=== PATIENT | female | born 1990 | race Caucasian/White ===

== ENCOUNTER 2017-08-14 09:00 | Inpatient (IN) | payer OTHER ==
[2017-08-14] MEDS ORDERED: AMPICILLIN SODIUM 2 GM VIAL ONE (12:38)
[2017-08-14] MEDS ORDERED: DEXTROSE 5%-LACTATED RINGERS 1,000 ML IV SCH (12:45)
--- NOTE | 2017-08-14 12:47 | HP ---
Past Medical History - Admission Chief Complaint: Labor pain History of Present Illness: 26 yo @ 39 weeks gestation, EDC 08/17/17, admitted for labor pain. History Source: Patient Limitations to Obtaining History: No Limitations - Past Medical History ...: 6 ...Para: 1 ...Term: 1 ...: 0 ...Spon : 1 ...Induced : 3 ...LMP: 11/03/16 ... Weeks Gestation by Dates: 40.4 ...EDC by Dates: 08/10/17 ...EDC by Sono: 08/17/17 - Past Surgical History Past Surgical History: Yes: None Hx Myomectomy: No Hx Transabdominal Cerclage: No - Smoking History Smoking history: Never smoked - Alcohol/Substance Use Hx Alcohol Use: No History of Substance Use: reports: None - Social History History of Recent Travel: No Home Medications - Allergies Allergies/Adverse Reactions: Allergies Allergy/AdvReac Type Severity Reaction Status Date / Time No Known Drug Allergies Allergy Verified 08/14/17 09:55 - Home Medications Home Medications: Ambulatory Orders Vitamins (Sjr) - 1 tab PO DAILY 04/20/13 Albuterol Sulfate 5 mg IH PRN 08/14/17 Ferrous Sulfate [Iron] 325 mg PO DAILY 08/14/17 Family Disease History - Family Disease History Family History: Unremarkable Review of Systems - Review of Systems Constitutional: reports: No Symptoms Eyes: reports: No Symptoms HENT: reports: No Symptoms Neck: reports: No Symptoms Cardiovascular: reports: No Symptoms Respiratory: reports: No Symptoms Gastrointestinal: reports: No Symptoms Genitourinary: reports: Pain Breasts: reports: No Symptoms Reported Musculoskeletal: reports: No Symptoms Integumentary: reports: No Symptoms Neurological: reports: No Symptoms Endocrine: reports: No Symptoms Hematology/Lymphatic: reports: No Symptoms Psychiatric: reports: No Symptoms Pain Intensity: 7 Physical Exam - Maternity Vital Signs: Vital Signs Temperature 98.0 F 08/14/17 10:00 Pulse Rate 90 08/14/17 10:00 Respiratory Rate 18 08/14/17 10:00 Blood Pressure 120/70 08/14/17 10:00 O2 Sat by Pulse Oximetry (%) Constitutional: Yes: Well Nourished Eyes: Yes: Conjunctiva Clear HENT: Yes: Atraumatic Neck: Yes: Supple Cardiovascular: Yes: Regular Rate and Rhythm Lungs: Clear to auscultation - Abdominal Exam/OB Number of Fetuses: Single Presentation: Vertex - Vaginal Exam/OB Dilatation (cm): 4 Effacement (%): 70 Amniotic Membrane Status: Intact Presentation: Vertex/Position Station: -3 - Physical Exam Musculoskeletal: Yes: WNL Extremities: Yes: WNL ...Motor Strength: WNL Psychiatric: Yes: Alert, Oriented Problem List - Problems (1) 39 weeks gestation of Code(s): Z3A.39 - 39 WEEKS GESTATION OF Assessment/Plan 39 weeks gestation Active labor Admit to L&D Pitocin augmentation Anticipate
[2017-08-14 13:48] VITALS: BMI 35.9
[2017-08-14 13:48] LABS: BASO % 0.7 % (0-2.0); EOS % 1.1 % (0-4.5); HEMATOCRIT 36.2 % (32.4-45.2); HEMOGLOBIN 12.6 GM/dL (10.7-15.3); LYMPH % 18.7 % (8-40); MCH 32.2 pg (25.7-33.7); MEAN CELL VOLUME 92.1 fl (80-96); MEAN PLT VOLUME 8.5 fl (7.5-11.1); MONO % 7.9 % (3.8-10.2); NEUT % 71.6 % (42.8-82.8); PLATELET COUNT 241 K/MM3 (134-434); RBC 3.93 M/mm3 (3.60-5.2); RDW 13.4 % (11.6-15.6); WHITE BLOOD COUNT 9.6 K/mm3 (4.0-10.0)
[2017-08-14 14:05] LABS: INR 1.01 (0.82-1.09); PROTHROMBIN TIME (PATIENT) 11.4 SEC (9.7-13.0)
[2017-08-14 14:10] LABS: ANION GAP 7 (8-16); BLOOD UREA NITROGEN 11 mg/dL (7-18); CALCIUM 8.2 mg/dL (8.5-10.1); CHLORIDE 107 mmol/L (98-107); CO2 26 mmol/L (21-32); CREATININE 0.5 mg/dL (0.55-1.02); GLUCOSE,RANDOM 85 mg/dL (74-106); POTASSIUM 3.9 mmol/L (3.5-5.1); SODIUM 140 mmol/L (136-145)
[2017-08-14] MEDS ORDERED: OXYTOCIN 30 UNITS in 0.9% NS 30 UNIT/500 ML INFUS.BAG IVPB ONE (15:07)
[2017-08-14] MEDS ORDERED: AMPICILLIN - 2 GM in SODIUM CHLORIDE 100 ML IVPB ONE (15:30)
[2017-08-14] MEDS ORDERED: OXYTOCIN 30 UNITS in 0.9% NS 30 UNIT/500 ML INFUS.BAG IVPB SCH (15:45)
[2017-08-14] MEDS: AMPICILLIN - 1 GM in SODIUM CHLORIDE 100 ML IVPB SCH ×2 (16:45→20:45)
[2017-08-14] MEDS ORDERED: AMPICILLIN SODIUM 1 GM VIAL ONE ×2 (16:53→20:52)
[2017-08-14] MEDS ORDERED: PROMETHAZINE HCL 25 MG/1 ML VIAL ONE (18:15)
[2017-08-14] MEDS ORDERED: BUTORPHANOL TARTRATE 1 MG/ML VIAL ONE ×2 (18:15)
[2017-08-14] MEDS ORDERED: PROMETHAZINE HCL 25 MG/1 ML VIAL IVPUSH ONE (19:00)
[2017-08-14] MEDS ORDERED: BUTORPHANOL TARTRATE 1 MG/ML VIAL IVPUSH ONE (19:00)
--- NOTE | 2017-08-14 20:38 | PN ---
Progress Note (short form) - Note Progress Note: Patient seen and evaluated; she c/o moderate discomfort. FHR : reassuring Bishop : + regular contractions VE : / -1 SROM ( clear ) Continue Pitocin augmentation Anticipate Problem List - Problems (1) 39 weeks gestation of Code(s): Z3A.39 - 39 WEEKS GESTATION OF
[2017-08-14] MEDS ORDERED: NALOXONE HCL 0.4 MG/ML VIAL IVPUSH PRN (20:49)
[2017-08-14] MEDS ORDERED: OXYTOCIN 20 UNITS in 0.9% NS 20 UNIT/1,000 ML INFUS.BAG IV ONE (20:51)
[2017-08-14] MEDS ORDERED: LIDOCAINE HCL 1% PRESERVATIVE FREE - 30ML VIAL ONE (20:52)
[2017-08-14] MEDS ORDERED: LIDO 2%/EPI 1:200000 PRESRVFRE (20 ML SDVIAL) ONE (20:55)
[2017-08-14] MEDS ORDERED: FENTANYL/BUPIVACAINE/NS/PF - PCEA - 50 ML DISP.SYRIN EP SCH (21:00)
[2017-08-14] MEDS ORDERED: FENTANYL/BUPIVACAINE/NS/PF - PCEA - 50 ML DISP.SYRIN EP ONE (21:10)
[2017-08-15] MEDS: IBUPROFEN 600 MG TABLET (FP) PO PRN ×3 (00:45→19:55)
[2017-08-15] MEDS ORDERED: IBUPROFEN 600 MG TABLET (FP) PO ONE (00:47)
[2017-08-15] MEDS: ACETAMINOPHEN 325 MG TABLET (FP) PO PRN ×2 (02:53→19:55)
[2017-08-15] MEDS: AMPICILLIN - 1 GM in SODIUM CHLORIDE 100 ML IVPB SCH (06:32)
--- NOTE | 2017-08-15 09:37 | PN ---
Post Note - Post Date of Delivery: 08/14/17 Post Day: 1 Vital Signs: Vital Signs - 24 hr 08/14/17 08/14/17 08/14/17 10:00 13:00 14:00 Temperature 98.0 F 97.8 F 98.6 F Pulse Rate 52 L 64 Pulse Rate [ 90 Left Pulse Oximetry] Respiratory 18 18 18 Rate Blood Pressure 107/52 112/54 Blood Pressure 120/70 [Right Upper Arm] O2 Sat by Pulse Oximetry (%) 08/14/17 08/14/17 08/14/17 15:00 16:00 17:00 Temperature 97.9 F Pulse Rate 56 L 56 L 54 L Pulse Rate [ Left Pulse Oximetry] Respiratory 20 20 20 Rate Blood Pressure 114/55 127/74 118/71 Blood Pressure [Right Upper Arm] O2 Sat by Pulse Oximetry (%) 08/14/17 08/14/17 08/14/17 18:00 19:00 20:00 Temperature 98.5 F Pulse Rate 62 55 L 55 L Pulse Rate [ Left Pulse Oximetry] Respiratory 20 20 20 Rate Blood Pressure 125/53 130/76 126/78 Blood Pressure [Right Upper Arm] O2 Sat by Pulse Oximetry (%) 08/14/17 08/14/17 08/14/17 21:00 21:05 21:10 Temperature Pulse Rate 60 59 L 69 Pulse Rate [ Left Pulse Oximetry] Respiratory 20 20 20 Rate Blood Pressure 123/80 96/67 110/60 Blood Pressure [Right Upper Arm] O2 Sat by Pulse 100 98 100 Oximetry (%) 08/14/17 08/14/17 08/14/17 21:15 21:30 21:45 Temperature Pulse Rate 69 71 82 Pulse Rate [ Left Pulse Oximetry] Respiratory 20 20 20 Rate Blood Pressure 106/59 111/55 121/67 Blood Pressure [Right Upper Arm] O2 Sat by Pulse 100 100 100 Oximetry (%) 08/14/17 08/14/17 08/14/17 22:00 22:15 22:30 Temperature Pulse Rate 65 65 69 Pulse Rate [ Left Pulse Oximetry] Respiratory 20 20 20 Rate Blood Pressure 123/68 121/68 119/64 Blood Pressure [Right Upper Arm] O2 Sat by Pulse 100 100 100 Oximetry (%) 08/14/17 08/14/17 08/14/17 22:45 23:00 23:15 Temperature Pulse Rate 63 62 97 H Pulse Rate [ Left Pulse Oximetry] Respiratory 20 20 20 Rate Blood Pressure 118/67 118/67 126/79 Blood Pressure [Right Upper Arm] O2 Sat by Pulse 100 100 100 Oximetry (%) 08/14/17 08/15/17 08/15/17 23:30 00:00 00:15 Temperature 98.4 F Pulse Rate 110 H 63 63 Pulse Rate [ Left Pulse Oximetry] Respiratory 20 20 20 Rate Blood Pressure 145/68 118/50 112/62 Blood Pressure [Right Upper Arm] O2 Sat by Pulse 100 100 Oximetry (%) 08/15/17 08/15/17 08/15/17 00:30 00:45 02:00 Temperature 98.5 F Pulse Rate 82 80 59 L Pulse Rate [ Left Pulse Oximetry] Respiratory 20 20 20 Rate Blood Pressure 120/44 127/49 112/50 Blood Pressure [Right Upper Arm] O2 Sat by Pulse 100 Oximetry (%) 08/15/17 06:00 Temperature 98.2 F Pulse Rate 74 Pulse Rate [ Left Pulse Oximetry] Respiratory 20 Rate Blood Pressure 126/56 Blood Pressure [Right Upper Arm] O2 Sat by Pulse Oximetry (%) Labs: Laboratory Results - last 24 hr 08/14/17 08/14/17 08/14/17 13:28 13:28 13:28 WBC 9.6 RBC 3.93 D Hgb 12.6 D Hct 36.2 D MCV 92.1 MCH 32.2 MCHC 35.0 RDW 13.4 Plt Count 241 D MPV 8.5 Neutrophils % 71.6 Lymphocytes % 18.7 D Monocytes % 7.9 Eosinophils % 1.1 Basophils % 0.7 PT with INR 11.40 INR 1.01 PTT (Actin FS) 26.0 L Sodium 140 Potassium 3.9 Chloride 107 Carbon Dioxide 26 Anion Gap 7 L BUN 11 Creatinine 0.5 L Random Glucose 85 Calcium 8.2 L RPR Titer Blood Type Antibody Screen 08/14/17 08/14/17 13:28 13:28 WBC RBC Hgb Hct MCV MCH MCHC RDW Plt Count MPV Neutrophils % Lymphocytes % Monocytes % Eosinophils % Basophils % PT with INR INR PTT (Actin FS) Sodium Potassium Chloride Carbon Dioxide Anion Gap BUN Creatinine Random Glucose Calcium RPR Titer Nonreactive Blood Type A POSITIVE Antibody Screen Negative - Subjective Subjective: No Complaints, No Nausea or vomiting - Objective Afebrile: Yes Breast: Not engorged Abdomen: Soft, Non-tender Uterus: Fundus firm Vagina: Scant lochia Extremities: Non-tender - Assessment/Plan (1) (normal spontaneous vaginal delivery) Assessment: S/P Normal Plan: Routine Care
[2017-08-15] MEDS ORDERED: DIPHTH,PERTUSS(ACELL),TET 0.5 ML DISP.SYRIN IM ONE (10:00)
[2017-08-16 08:46] VITALS: BP 130/72; PULSE 53; TEMP 98.5
--- NOTE | 2017-08-16 14:20 | PN ---
Delivery - Delivery Vaginal Delivery: Spontaneous Type of Anesthesia: Epidural Episiotomy/Laceration: None EBL (cc): 300 Delivery, Single - Stages of Labor Date 1st Stage Initiatied: 08/14/17 Time 1st Stage Initiated: 16:55 Date 2nd Stage Initiated: 08/14/17 Time 2nd Stage Initiated: 23:00 Date of Delivery: 08/14/17 Time of Delivery: 23:32 Time Placenta Delivered: 23:40 - Condition of Pantry Cook/Dyer Helper Present: No Gender: Female Weight: 7 lb 15 oz Position: Left, OA Total Hours ROM (Hrs/Mins): 3h15m - 1 Minute Total Score: 9 5 Minutes Total Score: 9 - Feeding Plan Initial Plan: Elected not to breastfeed exclusively throughout hospitalization Remarks - Remarks Remarks: Normal spontaneous vaginal delivery of a live infant. Nose / Oropharynx suctioned @ perineum. Cord clamped and cut. Placenta expelled spontaneously intact.
--- NOTE | 2017-08-16 14:22 | DS ---
Physical Exam-INSECT CONTROL INSPECTOR Vital Signs: Vital Signs Temperature 98.5 F 08/16/17 08:30 Pulse Rate 53 L 08/16/17 08:30 Respiratory Rate 18 08/16/17 08:30 Blood Pressure 130/72 08/16/17 08:30 O2 Sat by Pulse Oximetry (%) 100 08/15/17 00:30 Constitutional: Yes: Well Nourished Eyes: Yes: Conjunctiva Clear HENT: Yes: Atraumatic Neck: Yes: Supple Cardiovascular: Yes: Regular Rate and Rhythm Respiratory: Yes: Regular Gastrointestinal: Yes: Normal Bowel Sounds External Genitalia: Yes: Normal Vaginal Exam: Yes: Normal Cervix: Yes: Normal Uterus: Yes: Firm ....Post : Yes: Uterus firm, Moderate lochia serosa Breast(s): Yes: WNL Musculoskeletal: Yes: WNL Extremities: Yes: WNL Neurological: Yes: Alert, Oriented ...Motor Strength: WNL Psychiatric: Yes: Alert, Oriented Labs: CBC, BMP 08/14/17 13:28 08/14/17 13:28 Delivery - Delivery Vaginal Delivery: Spontaneous Type of Anesthesia: Epidural Episiotomy/Laceration: None EBL (cc): 300 Delivery, Single - Stages of Labor Date 1st Stage Initiatied: 08/14/17 Time 1st Stage Initiated: 16:55 Date 2nd Stage Initiated: 08/14/17 Time 2nd Stage Initiated: 23:00 Date of Delivery: 08/14/17 Time of Delivery: 23:32 Time Placenta Delivered: 23:40 - Condition of Infant Mental Telepathist/Parking Lot Attendant And Cashier Present: No Gender: Female Weight: 7 lb 15 oz Position: Left, OA Total Hours ROM (Hrs/Mins): 3h15m - 1 Minute Total Score: 9 5 Minutes Total Score: 9 - [place] Feeding Plan Initial Plan: Elected not to breastfeed exclusively throughout hospitalization Discharge Summary Reason For Visit: LABOR Procedures: Principal: Normal spontaneous vaginal delivery Hospital Course: Routine care Condition: Good - Instructions Diet, Activity, Other Instructions: Regular diet No douching, no sexual intercourse x 6 weeks F/U with MD in 6 weeks Disposition: HOME - Home Medications Comprehensive Discharge Medication List: Ambulatory Orders Vitamins (Sjr) - 1 tab PO DAILY 04/20/13 Albuterol Sulfate 5 mg IH PRN 08/14/17 Ferrous Sulfate [Iron] 325 mg PO DAILY 08/14/17
== END 2017-08-16 11:50 | disposition home or self-care (01) | DRG 560 ==
LOC: JDEL 09:00 → JLDR 12:15 → J3W 08-15 01:52
PROVIDERS: ADMIT Obstetrics & Gynecology; ATTEND Obstetrics & Gynecology
PROC: 10E0XZZ Delivery of Products of Conception, External Approach (ICD-10-PCS; principal; 2017-08-14)
DX: O80 Encounter for full-term uncomplicated delivery (principal); Z3A.39 39 weeks gestation of pregnancy; Z37.0 Single live birth
CPT/HCPCS: 36415; 59409; 80048; 85025; 85610; 85730; 86593; 86850; 86900; 86901; 90715

== ENCOUNTER 2019-04-06 12:58 | Inpatient (IN) | payer OTHER ==
[2019-04-06 13:07] VITALS: BMI 34.7
[2019-04-06] MEDS ORDERED: SODIUM CHLORIDE 1,000 ML IV STA ×2 (13:47→20:17)
[2019-04-06] MEDS ORDERED: FAMOTIDINE 20 MG/50 ML IVPB 20 MG/50 ML MG IVPB ONE ×2 (13:47→15:41)
[2019-04-06] MEDS ORDERED: morphine CARPU-JECT 4 MG/1 ML DISP.SYRIN IVPUSH ONE (13:47)
[2019-04-06] MEDS ORDERED: ONDANSETRON 4 MG/2 ML VIAL IVPUSH ONE (13:49)
--- NOTE | 2019-04-06 13:56 | PDOC ---
History of Present Illness - General Chief Complaint: Pain, Acute Stated Complaint: ABD/PAIN Time Seen by Provider: 04/06/19 13:36 History Source: Patient Exam Limitations: No Limitations - History of Present Illness Initial Comments: 04/06/19 13:54 Patient is a 28-year-old female to the ED with complaint of epigastric and right upper quadrant abdominal pain that radiates to her back. She states the pain has been ongoing for the last 4 to 5 days. She was seen at [facility] yesterday where she had labs, a CT scan, chest x-ray, and right upper quadrant ultrasound and was told they were all negative. She was discharged with a diagnosis of gastroenteritis. The patient states she has a history of kidney stones but this feels different and worse. She drinks alcohol socially less than once a month. She is a smoker. She admits to vomiting several times daily and states it is nonbloody. She denies any diarrhea. She states the pain initially started after eating something. Past History - Past Medical History Allergies/Adverse Reactions: Allergies Allergy/AdvReac Type Severity Reaction Status Date / Time No Known Drug Allergies Allergy Verified 08/14/17 09:55 Home Medications: Ambulatory Orders Escitalopram Oxalate [Lexapro -] 20 mg PO DAILY 04/06/19 Hydroxyzine HCl 25 mg PO TID PRN 04/06/19 Asthma: No Cancer: No Cardiac Disorders: No COPD: No Diabetes: No HTN: No Seizures: No Thyroid Disease: No - Psycho Social/Smoking Cessation Hx Smoking History: Smoker current status UNK Have you smoked in the past 12 months: No Hx Alcohol Use: No Drug/Substance Use Hx: No Hx Substance Use Treatment: No Review of Systems - Review of Systems Comments:: 04/06/19 13:55 - Review of Systems Able to Perform ROS?: Yes Constitutional: No: Documented fevers, Loss of Appetite, Night Sweats, Weakness ; + chills today HEENTM: No: Eye Pain, Vision changes, Ear Pain, Throat Pain, Throat Swelling, Mouth Pain, Difficulty Swallowing Respiratory: No: Cough, Shortness of Breath, Wheezing, Sputum Production Cardiac (ROS): No: Chest Pain, Chest Tightness, Palpitations, Irregular Heart Beat, Edema ABD/GI: No: Diarrhea; Positive: abdominal pain, vomiting, nausea : No Dysuria, No Hematuria, No Frequency, No Urgency, No Vaginal Discharge/ Pain Musculoskeletal: No: Muscle Pain, Back Pain, Joint Pain, Muscle Weakness, Neck Pain Integumentary: No: Lesions, Rash Neurological: No: Headache, Numbness, Tingling, Weakness, Speech Difficulties *Physical Exam - Vital Signs Last Vital Signs Temp Pulse Resp BP Pulse Ox 97.9 F 64 18 133/79 100 04/06/19 13:06 04/06/19 13:06 04/06/19 13:06 04/06/19 13:06 04/06/19 13:06 - Physical Exam 04/06/19 13:56 - Physical Exam General Appearance: Nourished, Appropriately Dressed, Moderate distress secondary to pain HEENT: EOMI, Normal Voice, No Nasal Congestion, Hearing Grossly Normal, No Muffled/Hoarse voice Neck: Supple, No Lymphadenopathy (R), No Lymphadenopathy (L), No Rigidity, No Decreased range of motion Respiratory/Chest: Lungs Clear, Normal Breath Sounds. No Respiratory Distress, No Accessory Muscle Use Cardiovascular: Regular Rhythm, Regular Rate, S1, S2 Gastrointestinal/Abdominal: Normal Bowel Sounds, Soft. Significant epigastric and RUQ abdominal tenderness to palpation, No rigidity, No rebound, + guarding, + R CVA tenderness to palpation, No CVA tenderness on the left Musculoskeletal: Normal Inspection. No Decreased Range of Motion Extremity: Normal Capillary Refill, Normal Inspection Integumentary: Normal Color, Dry. No Rash Neurologic: aqueduct and reservoir keeper II-XII NML intact, Fully Oriented, Alert, Normal Mood/Affect, Normal Response ED Treatment Course - RADIOLOGY Radiology Studies Ordered: Category Date Time Status ABDOMEN US -LIMITED [US] Stat Ultrasound 04/06/19 13:50 Ordered Medical Decision Making - Medical Decision Making 04/06/19 16:00 Patient endorsed to BYRON Almonte for further evaluation and treatment. The patient is still pending her US read, IV medication and fluids and lab works. The patient is stable at signout. Discharge - Discharge Information Problems reviewed: Yes Clinical Impression/Diagnosis: RUQ abdominal pain - Follow up/Referral Referrals: Deandra Weinberg [Primary Care Provider] - - Patient Discharge Instructions - Post Discharge Activity
[2019-04-06] MEDS ORDERED: morphine SULFATE 4 MG/ML VIAL ONE (15:40)
[2019-04-06] MEDS ORDERED: ONDANSETRON 4 MG/2 ML VIAL ONE ×2 (15:41→22:22)
[2019-04-06] MEDS ORDERED: MAG HYDROX/AL HYDROX/SIMETH 30 ML UNIT-DOSE CUP PO ONE (16:41)
[2019-04-06] MEDS ORDERED: MAG HYDROX/AL HYDROX/SIMETH 30 ML UNIT-DOSE CUP ONE (16:46)
[2019-04-06 16:49] LABS: BASO % 0.3 % (0-2.0); EOS % 0.1 % (0-4.5); HEMATOCRIT 44.4 % (32.4-45.2); HEMOGLOBIN 14.8 GM/dL (10.7-15.3); LYMPH % 8.4 % (8-40); MCH 31.2 pg (25.7-33.7); MCHC 33.3 g/dl (32.0-36.0); MEAN CELL VOLUME 93.7 fl (80-96); MEAN PLT VOLUME 9.3 fl (7.5-11.1); MONO % 4.9 % (3.8-10.2); NEUT % 86.3 % (42.8-82.8); PLATELET COUNT 403 K/MM3 (134-434); RBC 4.74 M/mm3 (3.60-5.2); RDW 14.6 % (11.6-15.6); WHITE BLOOD COUNT 14.7 K/mm3 (4.0-10.0)
[2019-04-06] MEDS ORDERED: METOCLOPRAMIDE HCL INJECTION 10 MG/2 ML VIAL IVPB ONE (16:50)
[2019-04-06 17:23] LABS: BILIRUBIN,TOTAL 0.4 mg/dL (0.2-1); BLOOD UREA NITROGEN 10.1 mg/dL (7-18); CALCIUM 9.6 mg/dL (8.5-10.1); CREATININE 0.7 mg/dL (0.55-1.3)
[2019-04-06] MEDS ORDERED: METOCLOPRAMIDE HCL INJECTION 10 MG/2 ML VIAL ONE (17:28)
[2019-04-06 18:22] LABS: PH,URINE >= 9.0 (5.0-8.0); URINE APPEARANCE CLEAR; URINE BILIRUBIN NEGATIVE (NEGATIVE); URINE COLOR YELLOW; URINE GLUCOSE (UA) NEGATIVE (NEGATIVE); URINE KETONE 3+ (NEGATIVE); URINE LEUK ESTERASE NEGATIVE (NEGATIVE); URINE NITRITE NEGATIVE (NEGATIVE); URINE PROTEIN TRACE (NEGATIVE)
--- NOTE | 2019-04-06 19:35 | PDOC ---
*Physical Exam - Vital Signs Last Vital Signs Temp Pulse Resp BP Pulse Ox 97.9 F 64 18 133/79 100 04/06/19 13:06 04/06/19 13:06 04/06/19 13:06 04/06/19 13:06 04/06/19 13:06 - Physical Exam General Appearance: Yes: Appropriately Dressed Respiratory/Chest: positive: Lungs Clear, Normal Breath Sounds Cardiovascular: positive: Regular Rhythm, Regular Rate Gastrointestinal/Abdominal: positive: Normal Bowel Sounds, Tender (RUQ pain), Soft Extremity: positive: Normal Capillary Refill, Normal Inspection Neurologic: positive: Fully Oriented, Alert ED Treatment Course - LABORATORY CBC & Chemistry Diagram: 04/06/19 16:00 04/06/19 16:00 - ADDITIONAL ORDERS Additional order review: Laboratory Results 04/06/19 04/06/19 04/06/19 18:00 18:00 16:00 Sodium Potassium Chloride Carbon Dioxide Anion Gap BUN Creatinine Est GFR (CKD-EPI)AfAm Est GFR (CKD-EPI)NonAf Random Glucose Calcium Total Bilirubin AST ALT Alkaline Phosphatase Total Protein Albumin Lipase 70 L Urine Color Yellow Urine Appearance Clear Urine pH >= 9.0 H Ur Specific [place] 1.025 Urine Protein Trace Urine Glucose (UA) Negative Urine Ketones 3+ H Urine Blood Negative Urine Nitrite Negative Urine Bilirubin Negative Urine Urobilinogen 1.0 Ur Leukocyte Esterase Negative Urine HCG, Qual Negative 04/06/19 16:00 Sodium 140 Potassium 4.0 Chloride 107 Carbon Dioxide 24 Anion Gap 9 BUN 10.1 Creatinine 0.7 Est GFR (CKD-EPI)AfAm 138.59 Est GFR (CKD-EPI)NonAf 119.58 Random Glucose 102 Calcium 9.6 Total Bilirubin 0.4 AST 21 ALT 22 Alkaline Phosphatase 107 Total Protein 8.0 Albumin 4.0 Lipase Urine Color Urine Appearance Urine pH Ur Specific [place] Urine Protein Urine Glucose (UA) Urine Ketones Urine Blood Urine Nitrite Urine Bilirubin Urine Urobilinogen Ur Leukocyte Esterase Urine HCG, Qual 04/06/19 16:00 RBC 4.74 MCV 93.7 MCHC 33.3 RDW 14.6 MPV 9.3 Neutrophils % 86.3 H D Lymphocytes % 8.4 D Monocytes % 4.9 Eosinophils % 0.1 D Basophils % 0.3 - RADIOLOGY Radiology Studies Ordered: Category Date Time Status ABDOMEN & PELVIS CT WITH CONTR [CT] Stat CT Scan 04/06/19 18:43 Ordered - Medications Given in the ED: ED Medications Discontinued Medications Generic Name Dose Route Start Last Admin Trade Name Pita PRN Reason Stop Dose Admin Al Hydroxide/Mg Hydroxide 30 ml 04/06/19 16:41 04/06/19 16:52 Mylanta Oral Suspension - PO 04/06/19 16:42 30 ml ONCE ONE Administration Famotidine/Sodium Chloride 20 mg in 50 mls @ 100 mls/hr 04/06/19 13:47 16:10 Pepcid 20 Mg Premixed Ivpb - IVPB 04/06/19 14:16 100 mls/hr ONCE ONE Administration Sodium Chloride 1,000 mls @ 1,000 mls/hr 04/06/19 13:47 04/06/19 16:10 Normal Saline - IV 04/06/19 14:46 1,000 mls/hr ASDIR STA Administration Metoclopramide HCl 10 mg 04/06/19 16:50 04/06/19 17:33 Reglan Injection - IVPB 04/06/19 16:51 10 mg ONCE ONE Administration Morphine Sulfate 4 mg 04/06/19 13:47 04/06/19 16:10 Morphine Injection - IVPUSH 04/06/19 13:48 4 mg ONCE ONE Administration Ondansetron HCl 4 mg 04/06/19 13:49 04/06/19 16:10 Zofran Injection IVPUSH 04/06/19 13:50 4 mg ONCE ONE Administration Medical Decision Making - Medical Decision Making 04/06/19 19:34 patient still with upper abdominal pain. patient reports that at [facility] she did not have a CT scan just and ultrasound. will CT to r/o acute cause of pain 04/06/19 21:14 CTAP pending. 04/06/19 21:[address] parra. + Acute cholecystitis. recommends admission, nPO , antibiotics. admit under medicine 04/06/19 22:02 patient signed out to Mai Rojas INCUBATOR TENDER Discharge - Discharge Information Problems reviewed: Yes Clinical Impression/Diagnosis: RUQ abdominal pain, Acute cholecystitis - Admission Yes - Follow up/Referral Referrals: Deandra Weinberg [Primary Care Provider] - - Patient Discharge Instructions - Post Discharge Activity
[2019-04-06] MEDS ORDERED: FLUORESCEIN NA 1 EA STRIP ONE (19:58)
[2019-04-06] MEDS ORDERED: TETRACAINE 0.5% OPHTH SOLN 2 ML BOTTLE ONE (19:58)
[2019-04-06] MEDS ORDERED: ERYTHROMYCIN 0.5% OPHTHALMIC OINTMENT 3.5 GM TUBE ONE (19:58)
[2019-04-06] MEDS ORDERED: morphine CARPU-JECT 2 MG/1 ML DISP.SYRIN IVPUSH ONE (21:12)
[2019-04-06] MEDS ORDERED: MORPHINE SULFATE 2 MG/ML VIAL ONE (21:15)
[2019-04-06] MEDS ORDERED: PIPERACILLIN/TAZOB 3.375 GM 3.375 GM in DEXTROSE 5%-WATER - 50 ML IVPB ONE (21:55)
[2019-04-06] MEDS ORDERED: HYDROmorphone HCL CARPU-JECT 2 MG/1 ML DISP.SYRIN IVPB ONE (21:55)
[2019-04-06] MEDS ORDERED: ONDANSETRON 4 MG/2 ML VIAL IVPB ONE (21:55)
[2019-04-06] MEDS ORDERED: HYDROmorphone HCl 2 MG/ML VIAL ONE (22:22)
[2019-04-06] MEDS ORDERED: PIPERACILLIN/TAZOB 3.375 GM 3.375 GM/50 ML BAG IVPB ONE (22:22)
[2019-04-06 22:59] LABS: INR 1.2 (0.83-1.09); PROTHROMBIN TIME (PATIENT) 14.2 SEC (9.7-13.0)
[2019-04-06] MEDS ORDERED: DEXTROSE 5%-0.2% SALINE - 1,000 ML IV SCH (23:00)
--- NOTE | 2019-04-06 23:47 | HP ---
Admitting History and Physical - Primary Care Physician PCP: Deandra Weinberg A - Admission Chief Complaint: Abdominal Pain History of Present Illness: This is a 28 y/o young woman with a PMHx of Renal Calculi, Asthma. Who presents to the ED with complaints of epigastric and right upper quadrant abdominal pain that radiates to her back 7 days ago worse since Tuesday. Patient reports that the pain has been constant sharp to nagging. She states being seen at [facility] yesterday where she had labs, a CT scan, chest x-ray, and right upper quadrant ultrasound and was told they were all negative. She was discharged with a diagnosis of gastroenteritis. The patient states she has a history of kidney stones but this feels different and worse. She drinks alcohol socially less than once a month. She is a smoker. She admits bilious vomiting several times daily and states it is nonbloody. She denies any diarrhea. She states the pain initially started after eating something. Patient denies fever, cough, dizziness, RENAE, SOB, CP, palpitations, dysuria. History Source: Patient Limitations to Obtaining History: No Limitations - Past Medical History Renal/: Yes: Renal Calculi ...LMP: 03/29/19 ...: No - Past Surgical History Additional Past Surgical History: - Smoking History Smoking history: Current every day smoker Have you smoked in the past 12 months: Yes - Alcohol/Substance Use Hx Alcohol Use: Yes (Socially) History of Substance Use: reports: None - Social History Usual Living Arrangement: Yes: With Child Do you think of yourself as: Straight/Heterosexual ADL: Independent History of Recent Travel: No Home Medications - Allergies Allergies/Adverse Reactions: Allergies Allergy/AdvReac Type Severity Reaction Status Date / Time No Known Drug Allergies Allergy Verified 08/14/17 09:55 - Home Medications Home Medications: Ambulatory Orders Escitalopram Oxalate [Lexapro -] 20 mg PO DAILY 04/06/19 Hydroxyzine HCl 25 mg PO TID PRN 04/06/19 Family Medical History Family Hx Cardiac Disorders: Mother (HTN) Family Hx Diabetes: Mother, Sister Family Hx Psychiatric Problems: Brother (Depression) Review of Systems - Review of Systems Constitutional: reports: Chills Eyes: reports: No Symptoms HENT: reports: No Symptoms Neck: reports: No Symptoms Cardiovascular: reports: No Symptoms Respiratory: reports: No Symptoms Gastrointestinal: reports: Abdominal Pain, Nausea, Vomiting Genitourinary: reports: Flank Pain Breasts: reports: No Symptoms Reported Musculoskeletal: reports: No Symptoms Integumentary: reports: No Symptoms Neurological: reports: No Symptoms Endocrine: reports: No Symptoms Hematology/Lymphatic: reports: No Symptoms Psychiatric: reports: No Symptoms Pain Intensity: 8 Physical Examination Vital Signs: Vital Signs Temperature 97.9 F 04/06/19 13:06 Pulse Rate 64 04/06/19 13:06 Respiratory Rate 18 04/06/19 13:06 Blood Pressure 133/79 04/06/19 13:06 O2 Sat by Pulse Oximetry (%) 100 04/06/19 13:06 Constitutional: Yes: Mild Distress, Obese Eyes: Yes: WNL, Conjunctiva Clear, EOM Intact, PERRL HENT: Yes: WNL, Atraumatic, Normocephalic Neck: Yes: WNL, Supple, Trachea Midline Cardiovascular: Yes: WNL, Regular Rate and Rhythm, S1, S2 Respiratory: Yes: WNL, Regular, CTA Bilaterally Gastrointestinal: Yes: Soft, Abdomen, Obese, Hypoactive Bowel Sounds, Tenderness (RUQ), Tenderness, Epigastrium ...Rectal Exam: Yes: WNL Renal/: Yes: WNL Breast(s): Yes: WNL Musculoskeletal: Yes: WNL Extremities: Yes: WNL Edema: No Peripheral Pulses WNL: Yes Integumentary: Yes: WNL Neurological: Yes: WNL, Alert, Oriented, Cran Nerves II-XII Intact ...Motor Strength: WNL Psychiatric: Yes: WNL, Alert, Oriented Labs: CBC, BMP 04/06/19 16:00 04/06/19 16:00 Laboratory Results - last 24 hr 04/06/19 04/06/19 04/06/19 16:00 16:00 16:00 WBC 14.7 H RBC 4.74 Hgb 14.8 Hct 44.4 D MCV 93.7 MCH 31.2 MCHC 33.3 RDW 14.6 Plt Count 403 D MPV 9.3 Absolute Neuts (auto) 12.7 H Neutrophils % 86.3 H D Lymphocytes % 8.4 D Monocytes % 4.9 Eosinophils % 0.1 D Basophils % 0.3 Nucleated RBC % 0 PT with INR INR PTT (Actin FS) Sodium 140 Potassium 4.0 Chloride 107 Carbon Dioxide 24 Anion Gap 9 BUN 10.1 Creatinine 0.7 Est GFR (CKD-EPI)AfAm 138.59 Est GFR (CKD-EPI)NonAf 119.58 POC Glucometer Random Glucose 102 Calcium 9.6 Total Bilirubin 0.4 AST 21 ALT 22 Alkaline Phosphatase 107 Total Protein 8.0 Albumin 4.0 Lipase 70 L Urine Color Urine Appearance Urine pH Ur Specific [place] Urine Protein Urine Glucose (UA) Urine Ketones Urine Blood Urine Nitrite Urine Bilirubin Urine Urobilinogen Ur Leukocyte Esterase Urine HCG, Qual Blood Type Antibody Screen 04/06/19 04/06/19 04/06/19 18:00 18:00 22:30 WBC RBC Hgb Hct MCV MCH MCHC RDW Plt Count MPV Absolute Neuts (auto) Neutrophils % Lymphocytes % Monocytes % Eosinophils % Basophils % Nucleated RBC % PT with INR INR PTT (Actin FS) 33.2 Sodium Potassium Chloride Carbon Dioxide Anion Gap BUN Creatinine Est GFR (CKD-EPI)AfAm Est GFR (CKD-EPI)NonAf POC Glucometer Random Glucose Calcium Total Bilirubin AST ALT Alkaline Phosphatase Total Protein Albumin Lipase Urine Color Yellow Urine Appearance Clear Urine pH >= 9.0 H Ur Specific [place] 1.025 Urine Protein Trace Urine Glucose (UA) Negative Urine Ketones 3+ H Urine Blood Negative Urine Nitrite Negative Urine Bilirubin Negative Urine Urobilinogen 1.0 Ur Leukocyte Esterase Negative Urine HCG, Qual Negative Blood Type Antibody Screen 04/06/19 04/06/19 04/07/19 22:30 22:30 02:44 WBC RBC Hgb Hct MCV MCH MCHC RDW Plt Count MPV Absolute Neuts (auto) Neutrophils % Lymphocytes % Monocytes % Eosinophils % Basophils % Nucleated RBC % PT with INR 14.20 H INR 1.20 H PTT (Actin FS) Sodium Potassium Chloride Carbon Dioxide Anion Gap BUN Creatinine Est GFR (CKD-EPI)AfAm Est GFR (CKD-EPI)NonAf POC Glucometer 182 Random Glucose Calcium Total Bilirubin AST ALT Alkaline Phosphatase Total Protein Albumin Lipase Urine Color Urine Appearance Urine pH Ur Specific [place] Urine Protein Urine Glucose (UA) Urine Ketones Urine Blood Urine Nitrite Urine Bilirubin Urine Urobilinogen Ur Leukocyte Esterase Urine HCG, Qual Blood Type A POSITIVE Antibody Screen Negative Current Medications Generic Name Dose Route Start Last Admin Trade Name Freq PRN Reason Stop Dose Admin Hydromorphone HCl 1 mg 04/07/19 00:36 04/07/19 01:04 Dilaudid Vial - IVPB 1 mg Q6H PRN Administration PAIN LEVEL 7 - 10 Dextrose/Sodium Chloride 1,000 mls @ 100 mls/hr 04/06/19 23:30 04/07/19 01:03 D5-1/2ns - IV 100 mls/hr ASDIR MALAIKA Administration Piperacillin Sod/Tazobactam 50 mls @ 100 mls/hr 04/07/19 10:00 Sod 3.375 gm/ Dextrose IVPB Q8H-IV MALAIKA Protocol Piperacillin Sod/Tazobactam 50 mls @ 100 mls/hr 04/07/19 02:00 04/07/19 02:06 Sod 3.375 gm/ Dextrose IVPB 04/07/19 18:29 100 mls/hr Q8H-IV MALAIKA Administration Ondansetron HCl 4 mg 04/06/19 23:48 Zofran Injection IVPUSH Q6H PRN NAUSEA Imaging - Results Chest X-ray: Image Reviewed Cat Scan: Report Reviewed, Image Reviewed Ultrasound: Report Reviewed, Image Reviewed Problem List - Problems (1) Acute cholecystitis Assessment/Plan: CTAP- Acute Cholecystitis US Abd- reviewed +Leukocytosis with L- shift Zosyn given in ED will continue Appreciate Surgical Consult- aware per ED resident Appreciate ID consult NPO IVF Dilaudid prn judiciously Zofran Monitor CBC, BMP Monitor vitals Code(s): K81.0 - ACUTE CHOLECYSTITIS (2) RUQ abdominal pain Assessment/Plan: See above Code(s): R10.11 - RIGHT UPPER QUADRANT PAIN (3) Nausea & vomiting Assessment/Plan: See above Code(s): R11.2 - NAUSEA WITH VOMITING, UNSPECIFIED (4) Asthma Assessment/Plan: stable no acute flare Albuterol neb prn Code(s): J45.909 - UNSPECIFIED ASTHMA, UNCOMPLICATED Visit type - Emergency Visit Emergency Visit: Yes ED Registration Date: 04/06/19 Care time: The patient presented to the Emergency Department on the above date and was hospitalized for further evaluation of their emergent condition. - New Patient This patient is new to me today: Yes Date on this admission: 04/06/19 - Critical Care Critical Care patient: No
[2019-04-07] MEDS ORDERED: HYDROmorphone HCl 2 MG/ML VIAL ONE (00:48)
[2019-04-07] MEDS: DEXTROSE 5%-0.45% SALINE 1,000 ML IV SCH ×3 (01:03→21:33)
[2019-04-07] MEDS: HYDROmorphone HCl 2 MG/ML VIAL IVPB PRN ×6 (01:04→22:25)
[2019-04-07] MEDS ORDERED: PIPERACILLIN/TAZOBACTAM 3.375 GM VIAL IVPB ONE ×3 (01:52→17:04)
[2019-04-07] MEDS ORDERED: DEXTROSE 5%-WATER - 50 ML IVPB ONE ×3 (01:52→17:04)
[2019-04-07] MEDS: PIPERACILLIN/TAZOB 3.375 GM 3.375 GM in DEXTROSE 5%-WATER - 50 ML IVPB SCH ×3 (02:06→17:18)
[2019-04-07] MEDS ORDERED: METOCLOPRAMIDE HCL INJECTION 10 MG/2 ML VIAL IVPB ONE (02:09)
[2019-04-07] MEDS ORDERED: ALBUTEROL SO4 0.083% IH SOL 2.5 MG/3 ML VIAL.NEB. NEB PRN (06:36)
[2019-04-07 08:16] LABS: BASO % 0.3 % (0-2.0); EOS % 0.1 % (0-4.5); HEMATOCRIT 36.7 % (32.4-45.2); HEMOGLOBIN 12.1 GM/dL (10.7-15.3); LYMPH % 10.9 % (8-40); MCHC 32.9 g/dl (32.0-36.0); MEAN CELL VOLUME 94.3 fl (80-96); MEAN PLT VOLUME 8.8 fl (7.5-11.1); MONO % 10.4 % (3.8-10.2); NEUT % 78.3 % (42.8-82.8); PLATELET COUNT 276 K/MM3 (134-434); RBC 3.89 M/mm3 (3.60-5.2); RDW 14.4 % (11.6-15.6); WHITE BLOOD COUNT 12.8 K/mm3 (4.0-10.0)
[2019-04-07 08:36] LABS: BLOOD UREA NITROGEN 6.3 mg/dL (7-18); CALCIUM 8.7 mg/dL (8.5-10.1); CREATININE 0.6 mg/dL (0.55-1.3); POTASSIUM 4.1 mmol/L (3.5-5.1)
[2019-04-07] MEDS ORDERED: PIPERACILLIN/TAZOB 3.375 GM 3.375 GM in DEXTROSE 5%-WATER - 50 ML IVPB SCH (10:00)
--- NOTE | 2019-04-07 11:54 | PN ---
Progress Note, Physician Chief Complaint: AWAKE ALERT IN BED EVENTS AND NOTES REVIEWED NO FEVER OR CHILLS - Current Medication List Current Medications: Active Medications Albuterol Sulfate (Ventolin 0.083% Nebulizer Soln -) 1 amp NEB RQID PRN PRN Reason: SHORT OF BREATH/WHEEZING Hydromorphone HCl (Dilaudid Vial -) 1 mg IVPB Q6H PRN PRN Reason: PAIN LEVEL 7 - 10 Last Admin: 04/07/19 07:01 Dose: 1 mg Hydromorphone HCl (Dilaudid Vial -) 1 mg IVPB Q3H PRN PRN Reason: PAIN 6-10 Last Admin: 04/07/19 10:27 Dose: 1 mg Dextrose/Sodium Chloride (D5-1/2ns -) 1,000 mls @ 100 mls/hr IV ASDIR MALAIKA Last Admin: 04/07/19 09:27 Dose: 100 mls/hr Piperacillin Sod/Tazobactam (Sod 3.375 gm/ Dextrose) 50 mls @ 100 mls/hr IVPB Q8H-IV MALAIKA; Protocol Piperacillin Sod/Tazobactam (Sod 3.375 gm/ Dextrose) 50 mls @ 100 mls/hr IVPB Q8H-IV MALAIKA Stop: 04/07/19 18:29 Last Admin: 04/07/19 09:27 Dose: 100 mls/hr Ondansetron HCl (Zofran Injection) 4 mg IVPUSH Q6H PRN PRN Reason: NAUSEA - Objective Vital Signs: Vital Signs Temperature 99.1 F 04/07/19 11:00 Pulse Rate 75 04/07/19 11:00 Respiratory Rate 18 04/07/19 11:00 Blood Pressure 129/76 04/07/19 11:00 O2 Sat by Pulse Oximetry (%) 98 04/07/19 02:00 Constitutional: Yes: Mild Distress Cardiovascular: Yes: Regular Rate and Rhythm Respiratory: Yes: WNL Gastrointestinal: Yes: Soft, Tenderness Genitourinary: Yes: WNL Musculoskeletal: Yes: WNL Extremities: Yes: WNL Edema: No Peripheral Pulses WNL: Yes Integumentary: Yes: WNL Wound/Incision: Yes: Clean/Dry Neurological: Yes: WNL ...Motor Strength: WNL Psychiatric: Yes: WNL Labs: CBC, BMP 04/07/19 07:27 04/07/19 07:27 INR, PTT INR 1.20 (0.83-1.09) H 04/06/19 22:30 Problem List - Problems (1) Acute cholecystitis Code(s): K81.0 - ACUTE CHOLECYSTITIS (2) Nausea & vomiting Code(s): R11.2 - NAUSEA WITH VOMITING, UNSPECIFIED (3) RUQ abdominal pain Code(s): R10.11 - RIGHT UPPER QUADRANT PAIN Assessment/Plan URINE HCG NEGATIVE ZOSYN IV CONTINUE PER ID SURGERY EVAL DVT PROPHYLAXIS IVF PAIN CONTROL
--- NOTE | 2019-04-07 12:54 | PN ---
Progress Note (short form) - Note Progress Note: surgery pt seen and examined. 28f with 1 week history of ruq pain radiating to back. wbc 14. u/s shows no stones with small pericholecystic fluid and mild thickening. ct shows distended gb with mild thickening. pt admitted for acute cholecystitis and started on zosyn. abd- soft, ruq tenderness Plan- clinically acute cholecystitis but I am concerned that no stones are present. i would also expect more impressive findings on CT if this has been occurring for a week. could this be gastritis? will get HIDA. if HIDA positive will proceed with surgery this admission for acalculus choleycystitis. if hida negative may benefit from endoscopy. acalculus cholecystitis is extremely rare in 28 y/o people not institutionalized.
[2019-04-07] MEDS: PANTOPRAZOLE SODIUM 40 MG VIAL IVPUSH SCH ×2 (13:22→21:33)
[2019-04-07] MEDS: SUCRALFATE 1 GM TABLET (FP) PO SCH ×3 (13:23→21:32)
--- NOTE | 2019-04-07 13:25 | CONS ---
DATE OF CONSULTATION: 04/07/2019 REASON FOR CONSULTATION: Acute cholecystitis. This is an emergency room consultation. BRIEF HISTORY: This is a 28-year-old female who for 1 week has had a severe right upper quadrant abdominal pain radiating to her back. She was seen at a different hospital where she was told she had a negative CAT scan, negative ultrasound, and was diagnosed with gastritis and sent home. She, therefore, came to [facility] Emergency Room for different opinions. Here she had a CAT scan of her abdomen and pelvis as well as an ultrasound. The CAT scan and the ultrasound both suggested thickening of the gallbladder with possible small pericholecystic fluid. No stones were identified on either study. Her white blood cell count was elevated at 14,000, and her chemistries as well as her liver function tests were unremarkable. She was admitted to the hospital for acute cholecystitis. She was placed on Zosyn antibiotic. Overnight, her symptoms have not resolved. She is vomiting, and her white blood cell count is at 12,000. Her repeat chemistries are still unremarkable. PAST MEDICAL HISTORY: Significant for kidney stones and asthma. PAST SURGICAL HISTORY: Nil. SOCIAL HISTORY: Negative for alcohol. Negative for tobacco. FAMILY HISTORY: Noncontributory. HOME MEDICATIONS: Include Lexapro and hydrochlorothiazide. REVIEW OF SYSTEMS: General: Denies fatigue or malaise. Cardiac: Denies chest pain or palpitations. Respiratory: Denies shortness of breath or wheeze. Gastrointestinal: As in HPI. Denies blood in her vomit. Denies diarrhea. She thought that she initially had eaten some bad food and had gas. Genitourinary: Denies dysuria. Musculoskeletal: Denies joint pain. Psychiatric: Denies anxiety. Admits to some depression. PHYSICAL EXAMINATION: General: This is an obese 28-year-old female in no distress. Vital Signs: She is afebrile. Her vital signs are stable. HEENT: Her head is normocephalic. Her sclerae are anicteric. Neck: Supple. Chest: Clear. Abdomen: Soft. She has localized right upper quadrant tenderness with rebound, and I perhaps feel her gallbladder being distended on palpation. She has perhaps a small ventral hernia. She has no other surgical scars. Extremities: She has no edema to her extremities. ASSESSMENT: This is a 28-year-old female with right upper quadrant pain radiating to her back, nausea, vomiting. She has localized findings in her right upper quadrant. PLAN: Her ultrasound and CAT scan are suggestive of acute cholecystitis; however, she has no gallstones. Clinically, this is acute cholecystitis; however, I am concerned that no stones are visualized. I would expect also that if someone has had acute cholecystitis for a week that they would have significant inflammatory changes, and hers are unimpressive. Therefore, I must also entertain the diagnosis of gastritis. I will get a HIDA scan whenever it is available at [facility]. If the HIDA scan confirms cholecystitis, we will proceed with cholecystectomy. If the HIDA scan, however, is negative that will rule out acute cholecystitis and then perhaps the patient would benefit from an upper endoscopy. I would start proton pump inhibitor therapy as well as Carafate to treat for gastritis, and she is on Zosyn being treated for acute cholecystitis as well. She is currently nontoxic. She has no fever, and her white blood cell count is improving. DO ANIKA ESCOBEDO/[id number]
[2019-04-07] MEDS ORDERED: PT OWN MED DRAWER 7, Y5N ONE (17:35)
[2019-04-07] MEDS ORDERED: ALPRAZolam 0.25 MG TABLET PO PRN (18:53)
[2019-04-07] MEDS: ONDANSETRON 4 MG/2 ML VIAL IVPUSH PRN (19:25)
[2019-04-07] MEDS ORDERED: ESCITALOPRAM OXALATE 20 MG TABLET (FP) PO ONE (19:49)
[2019-04-07] MEDS ORDERED: ESCITALOPRAM OXALATE 10 MG TABLET (FP) ONE (21:13)
[2019-04-07] MEDS: HEPARIN NA (PORCINE) 5,000 UNITS/ML 1ML VIAL SQ SCH (21:32)
[2019-04-08] MEDS: HYDROmorphone HCl 2 MG/ML VIAL IVPB PRN ×7 (01:39→21:33)
[2019-04-08] MEDS: ONDANSETRON 4 MG/2 ML VIAL IVPUSH PRN ×4 (01:39→21:33)
[2019-04-08] MEDS ORDERED: DEXTROSE 5%-WATER - 50 ML IVPB ONE ×3 (01:45→17:45)
[2019-04-08] MEDS ORDERED: PIPERACILLIN/TAZOBACTAM 3.375 GM VIAL IVPB ONE ×3 (01:45→17:45)
[2019-04-08] MEDS: PIPERACILLIN/TAZOB 3.375 GM 3.375 GM in DEXTROSE 5%-WATER - 50 ML IVPB SCH ×3 (01:53→18:01)
[2019-04-08] MEDS: DEXTROSE 5%-0.45% SALINE 1,000 ML IV SCH ×2 (06:12→16:20)
--- NOTE | 2019-04-08 08:38 | PN ---
Progress Note, Physician Chief Complaint: AWAKE ALERT +N/V NO FEVER/ +CHILLS - Current Medication List Current Medications: Active Medications Albuterol Sulfate (Ventolin 0.083% Nebulizer Soln -) 1 amp NEB RQID PRN PRN Reason: SHORT OF BREATH/WHEEZING Alprazolam (Xanax -) 0.25 mg PO ONCE PRN PRN Reason: ANXIETY Stop: 04/08/19 18:52 Last Admin: 04/07/19 22:29 Dose: 0.25 mg Escitalopram Oxalate (Lexapro -) 20 mg PO DAILY [facility] Heparin Sodium (Porcine) (Heparin -) 5,000 unit SQ BID [facility] Last Admin: 04/07/19 21:32 Dose: 5,000 unit Hydromorphone HCl (Dilaudid Vial -) 1 mg IVPB Q6H PRN PRN Reason: PAIN LEVEL 7 - 10 Last Admin: 04/07/19 07:01 Dose: 1 mg Hydromorphone HCl (Dilaudid Vial -) 1 mg IVPB Q3H PRN PRN Reason: PAIN 6-10 Last Admin: 04/08/19 08:09 Dose: 1 mg Dextrose/Sodium Chloride (D5-1/2ns -) 1,000 mls @ 100 mls/hr IV ASDIR MALAIKA Last Admin: 04/08/19 06:12 Dose: 100 mls/hr Piperacillin Sod/Tazobactam (Sod 3.375 gm/ Dextrose) 50 mls @ 100 mls/hr IVPB Q8H-IV MALAIKA; Protocol Last Admin: 04/08/19 01:53 Dose: 100 mls/hr Ondansetron HCl (Zofran Injection) 4 mg IVPUSH Q6H PRN PRN Reason: NAUSEA Last Admin: 04/08/19 08:07 Dose: 4 mg Pantoprazole Sodium (Protonix Iv) 40 mg IVPUSH BID [facility] Last Admin: 04/07/19 21:33 Dose: 40 mg Sucralfate (Carafate -) 1 gm PO QID [facility] Last Admin: 04/07/19 21:32 Dose: 1 gm - Objective Vital Signs: Vital Signs Temperature 98.5 F 04/07/19 19:00 Pulse Rate 82 04/07/19 19:00 Respiratory Rate 20 04/07/19 19:00 Blood Pressure 140/90 04/07/19 19:00 O2 Sat by Pulse Oximetry (%) 99 04/07/19 09:00 Constitutional: Yes: Mild Distress Cardiovascular: Yes: WNL Respiratory: Yes: WNL Gastrointestinal: Yes: Tenderness Musculoskeletal: Yes: WNL Neurological: Yes: WNL Labs: CBC, BMP 04/07/19 07:27 04/07/19 07:27 INR, PTT INR 1.20 (0.83-1.09) H 04/06/19 22:30 Problem List - Problems (1) Acute cholecystitis Code(s): K81.0 - ACUTE CHOLECYSTITIS (2) Nausea & vomiting Code(s): R11.2 - NAUSEA WITH VOMITING, UNSPECIFIED (3) RUQ abdominal pain Code(s): R10.11 - RIGHT UPPER QUADRANT PAIN Assessment/Plan URINE HCG NEGATIVE ZOSYN IV CONTINUE PER ID SURGERY EVAL DVT PROPHYLAXIS IVF PAIN CONTROL GI EVAL EGD
[2019-04-08 09:16] LABS: HEMATOCRIT 35.2 % (32.4-45.2); HEMOGLOBIN 11.6 GM/dL (10.7-15.3); MCH 30.9 pg (25.7-33.7); MEAN CELL VOLUME 93.6 fl (80-96); MEAN PLT VOLUME 8.9 fl (7.5-11.1); PLATELET COUNT 232 K/MM3 (134-434); RBC 3.76 M/mm3 (3.60-5.2); RDW 14.6 % (11.6-15.6); WHITE BLOOD COUNT 8.1 K/mm3 (4.0-10.0)
[2019-04-08] MEDS ORDERED: ESCITALOPRAM OXALATE 10 MG TABLET (FP) ONE (09:34)
[2019-04-08] MEDS: PANTOPRAZOLE SODIUM 40 MG VIAL IVPUSH SCH ×2 (09:38→21:33)
[2019-04-08] MEDS: HEPARIN NA (PORCINE) 5,000 UNITS/ML 1ML VIAL SQ SCH ×2 (09:44→21:32)
[2019-04-08] MEDS: SUCRALFATE 1 GM TABLET (FP) PO SCH ×4 (09:44→21:32)
[2019-04-08] MEDS: ESCITALOPRAM OXALATE 20 MG TABLET (FP) PO SCH (09:44)
[2019-04-08 10:02] LABS: ALBUMIN 3.1 g/dl (3.4-5.0); BILIRUBIN,TOTAL 0.3 mg/dL (0.2-1); BLOOD UREA NITROGEN 4.8 mg/dL (7-18); CALCIUM 8.2 mg/dL (8.5-10.1); CREATININE 0.6 mg/dL (0.55-1.3); POTASSIUM 3.5 mmol/L (3.5-5.1); TOT PROT 6.2 g/dl (6.4-8.2)
--- NOTE | 2019-04-08 14:17 | PN ---
Progress Note (short form) - Note Progress Note: surgery pt seen and examined. still with pain and nausea afebrile abd- soft, localized ruq tendereness Laboratory Tests 04/08/19 08:45 WBC 8.1 Plan- acalculus cholecystitis vs gastritis- awaiting hida. +/- surgery pending results.
[2019-04-08] MEDS ORDERED: ALPRAZolam 0.25 MG TABLET PO ONE (21:30)
[2019-04-09] MEDS: HYDROmorphone HCl 2 MG/ML VIAL IVPB PRN ×8 (00:30→22:14)
[2019-04-09] MEDS ORDERED: DEXTROSE 5%-WATER - 50 ML IVPB ONE ×3 (02:17→16:30)
[2019-04-09] MEDS ORDERED: PIPERACILLIN/TAZOBACTAM 3.375 GM VIAL IVPB ONE ×3 (02:17→16:30)
[2019-04-09] MEDS: PIPERACILLIN/TAZOB 3.375 GM 3.375 GM in DEXTROSE 5%-WATER - 50 ML IVPB SCH ×3 (02:35→17:04)
[2019-04-09] MEDS: ONDANSETRON 4 MG/2 ML VIAL IVPUSH PRN ×4 (03:41→22:14)
[2019-04-09] MEDS: DEXTROSE 5%-0.45% SALINE 1,000 ML IV SCH ×2 (04:36→21:40)
--- NOTE | 2019-04-09 07:50 | PN ---
Progress Note (short form) - Note Progress Note: GENERAL SURGERY 28 yo female with acalculus cholecystitis vs. gastritis Awaiting HIDA scan. +/- surgery pending results. Will cont to follow.
[2019-04-09] MEDS ORDERED: ESCITALOPRAM OXALATE 10 MG TABLET (FP) ONE (09:44)
[2019-04-09] MEDS ORDERED: PT OWN MED DRAWER 7, Y5N ONE ×2 (09:45→16:56)
[2019-04-09] MEDS: PANTOPRAZOLE SODIUM 40 MG VIAL IVPUSH SCH ×2 (09:50→21:41)
[2019-04-09] MEDS: HEPARIN NA (PORCINE) 5,000 UNITS/ML 1ML VIAL SQ SCH ×2 (09:51→21:39)
[2019-04-09] MEDS: SUCRALFATE 1 GM TABLET (FP) PO SCH ×4 (10:10→21:40)
--- NOTE | 2019-04-09 11:18 | PN ---
Progress Note, Physician Chief Complaint: Abdominal pain History of Present Illness: c/o intermittent abd pain Awaiting HIDA scan Seen by Surgery On IV Zosyn NPO for now - Current Medication List Current Medications: Active Medications Albuterol Sulfate (Ventolin 0.083% Nebulizer Soln -) 1 amp NEB RQID PRN PRN Reason: SHORT OF BREATH/WHEEZING Escitalopram Oxalate (Lexapro -) 20 mg PO DAILY [facility] Last Admin: 04/08/19 09:44 Dose: 20 mg Heparin Sodium (Porcine) (Heparin -) 5,000 unit SQ BID [facility] Last Admin: 04/09/19 09:51 Dose: Not Given Hydromorphone HCl (Dilaudid Vial -) 1 mg IVPB Q6H PRN PRN Reason: PAIN LEVEL 7 - 10 Last Admin: 04/08/19 11:54 Dose: 1 mg Hydromorphone HCl (Dilaudid Vial -) 1 mg IVPB Q3H PRN PRN Reason: PAIN 6-10 Last Admin: 04/09/19 09:47 Dose: 1 mg Dextrose/Sodium Chloride (D5-1/2ns -) 1,000 mls @ 100 mls/hr IV ASDIR [facility] Last Admin: 04/09/19 04:36 Dose: 100 mls/hr Piperacillin Sod/Tazobactam (Sod 3.375 gm/ Dextrose) 50 mls @ 100 mls/hr IVPB Q8H-IV MALAIKA; Protocol Last Admin: 04/09/19 02:35 Dose: 100 mls/hr Ondansetron HCl (Zofran Injection) 4 mg IVPUSH Q6H PRN PRN Reason: NAUSEA Last Admin: 04/09/19 09:55 Dose: 4 mg Pantoprazole Sodium (Protonix Iv) 40 mg IVPUSH BID [facility] Last Admin: 04/09/19 09:50 Dose: 40 mg Sucralfate (Carafate -) 1 gm PO QID [facility] Last Admin: 04/08/19 21:32 Dose: 1 gm - Objective Vital Signs: Vital Signs Temperature 98.4 F 04/09/19 07:49 Pulse Rate 64 04/09/19 07:49 Respiratory Rate 14 04/09/19 07:49 Blood Pressure 141/82 04/09/19 07:49 O2 Sat by Pulse Oximetry (%) 96 04/08/19 09:00 Labs: CBC, BMP 04/08/19 08:45 04/08/19 08:45 INR, PTT INR 1.20 (0.83-1.09) H 04/06/19 22:30 Problem List - Problems (1) Acute cholecystitis Assessment/Plan: -Abd/pel CT- acalculus cholecystitis -Awaiting HIDA scan -NPO -Surgery on board -Pain management Problems reviewed: Yes Code(s): K81.0 - ACUTE CHOLECYSTITIS (2) Nausea & vomiting Assessment/Plan: -Zofran PRN -IVF Problems reviewed: Yes Code(s): R11.2 - NAUSEA WITH VOMITING, UNSPECIFIED (3) RUQ abdominal pain Assessment/Plan: -Pain management Problems reviewed: Yes Code(s): R10.11 - RIGHT UPPER QUADRANT PAIN Assessment/Plan see problem list
[2019-04-09] MEDS: ESCITALOPRAM OXALATE 20 MG TABLET (FP) PO SCH (12:39)
--- NOTE | 2019-04-09 14:49 | CON.GI ---
Consult Consult Specialty:: GI Referred by:: Medicine Reason for Consultation:: abdominal pain - History of Present Illness Chief Complaint: abdominal pain History of Present Illness: 28F with h/o asthma and depression admitted for evaluation of epigastric/RUQ pain that began Friday 03/30, radiating to infrascapular area, with intermittent N/V. +FHx gallstone disease. Pain was at first intermittent but became constant last tue. Came to [facility] ED on Tuesday. Labs notable for leukocytosis. US with minimal GB wall thickening, no stones. CT with signs of cholecystitis, but again no stones. Seen by surgery, sent for HIDA, which she had this am, read pending. Denies jaundice, dark urine, light stool. Is still in pain - History Source History Provided By: Patient Limitations to Obtaining History: No Limitations - Past Medical History Renal/: Yes: Renal Calculi ...LMP: 03/29/19 ...: No - Past Surgical History Past Surgical History: Yes: None - Alcohol/Substance Use Hx Alcohol Use: Yes (Socially) History of Substance Use: reports: None - Smoking History Smoking history: Current every day smoker Have you smoked in the past 12 months: Yes - Social History ADL: Independent History of Recent Travel: No Home Medications - Allergies Allergies/Adverse Reactions: Allergies Allergy/AdvReac Type Severity Reaction Status Date / Time No Known Drug Allergies Allergy Verified 08/14/17 09:55 - Home Medications Home Medications: Ambulatory Orders Escitalopram Oxalate [Lexapro -] 20 mg PO DAILY 04/06/19 Hydroxyzine HCl 25 mg PO TID PRN 04/06/19 Family Medical History Family Hx Gastrointestinal Disorder: Mother (gallstones) Review of Systems - Review of Systems Constitutional: reports: Chills. denies: Fever Eyes: reports: No Symptoms HENT: reports: No Symptoms Neck: reports: No Symptoms Cardiovascular: reports: No Symptoms Respiratory: reports: No Symptoms Gastrointestinal: reports: Abdominal Pain, Nausea, Vomiting Musculoskeletal: reports: No Symptoms Integumentary: reports: No Symptoms Neurological: reports: No Symptoms Endocrine: reports: No Symptoms Hematology/Lymphatic: reports: No Symptoms Psychiatric: reports: No Symptoms Physical Exam-GI Vital Signs: Vital Signs Temperature 98.3 F 04/09/19 14:34 Pulse Rate 54 L 04/09/19 14:34 Respiratory Rate 14 04/09/19 14:34 Blood Pressure 139/75 04/09/19 14:34 O2 Sat by Pulse Oximetry (%) 97 04/09/19 09:00 Constitutional: Yes: Well Nourished, No Distress Eyes: Yes: Conjunctiva Clear Cardiovascular: Yes: Regular Rate and Rhythm Respiratory: Yes: CTA Bilaterally ...Palpate: Yes: Soft, Tenderness (RUQ and epigastrium. +Anderson's.), Tenderness , Epigastium, Tenderness, Rebound (has localized peritonitis in RUQ, also in LUQ ) ...Rectal Exam: Yes: Deferred Musculoskeletal: Yes: WNL Extremities: Yes: WNL Edema: No Neurological: Yes: Alert, Oriented Psychiatric: Yes: Alert, Oriented Labs: CBC, BMP 04/08/19 08:45 04/08/19 08:45 INR, PTT INR 1.20 (0.83-1.09) H 04/06/19 22:30 Hepatic Panel Total Bilirubin 0.3 mg/dL (0.2-1) 04/08/19 08:45 AST 11 U/L (15-37) L 04/08/19 08:45 ALT 16 U/L (13-61) 04/08/19 08:45 Alkaline Phosphatase 72 U/L (45-117) 04/08/19 08:45 Albumin 3.1 g/dl (3.4-5.0) L 04/08/19 08:45 Imaging - Results Cat Scan: Report Reviewed Ultrasound: Report Reviewed Assessment/Plan Epigastric/RUQ pain with imaging findings of cholecystitis - clinically seems to fit, although strange that we do not see stones Concern that exam is starting to be peritoneal -- seems to be a change from other practitioner's exams Differential would be cholecystitis vs possible perforated PUD Discussed with surgeon by phone, who looked at HIDA images -- seems negative Awaiting call back from radiology regarding read on HIDA Would keep patient NPO Continue IV abx Would get stat upright CXR and KUB to rule out free air Communicated to RN on floor
--- NOTE | 2019-04-09 16:10 | PN ---
Progress Note (short form) - Note Progress Note: surgery Hida positive. clinically acute cholecystitis. will make arrangements for surgery. cont abx. cont npo.
--- NOTE | 2019-04-09 16:27 | SPA.PREOP ---
- PRE-OP NOTE Dx: Acalculous Cholecystitis Planned Procedure: Laprascopic Cholecystectomy; Possible open Surgeon: Tim Vasquez Last Vital Signs Temp Pulse Resp BP Pulse Ox 98.3 F 54 L 14 139/75 97 04/09/19 14:34 04/09/19 14:34 04/09/19 14:34 04/09/19 14:34 04/09/19 09:00 Lab Results WBC 8.1 K/mm3 (4.0-10.0) 04/08/19 08:45 RBC 3.76 M/mm3 (3.60-5.2) 04/08/19 08:45 Hgb 11.6 GM/dL (10.7-15.3) 04/08/19 08:45 Hct 35.2 % (32.4-45.2) 04/08/19 08:45 MCV 93.6 fl (80-96) 04/08/19 08:45 MCHC 33.0 g/dl (32.0-36.0) 04/08/19 08:45 RDW 14.6 % (11.6-15.6) 04/08/19 08:45 Plt Count 232 K/MM3 (134-434) 04/08/19 08:45 Sodium 139 mmol/L (136-145) 04/08/19 08:45 Potassium 3.5 mmol/L (3.5-5.1) 04/08/19 08:45 Chloride 105 mmol/L (98-107) 04/08/19 08:45 Carbon Dioxide 28 mmol/L (21-32) 04/08/19 08:45 Anion Gap 5 MMOL/L (8-16) L 04/08/19 08:45 BUN 4.8 mg/dL (7-18) L 04/08/19 08:45 Creatinine 0.6 mg/dL (0.55-1.3) 04/08/19 08:45 Random Glucose 111 mg/dL (74-106) H 04/08/19 08:45 Calcium 8.2 mg/dL (8.5-10.1) L 04/08/19 08:45 Blood Type A POSITIVE 04/06/19 22:30 Antibody Screen Negative 04/06/19 22:30 INR 1.20 (0.83-1.09) H 04/06/19 22:30 - ASSESSMENT/PLAN 1. NPO after midnight except PO meds 2. GI/DVT PPX 3. Medical optimization / clearance 4. Consent to be obtained by surgeon after risks, benefits and alternatives discussed with patient and or Health Care Proxy. Problem List - Problems (1) Acute acalculous cholecystitis Code(s): K81.0 - ACUTE CHOLECYSTITIS Visit type - Case Type Case Type: ED Admission - Emergency Emergency Visit: Yes ED Registration Date: 04/06/19 Care time: The patient presented to the Emergency Department on the above date and was hospitalized for further evaluation of their emergent condition. - New patient This patient is new to me today: Yes Date on this admission: 04/09/19
[2019-04-09] MEDS ORDERED: ALPRAZolam 0.25 MG TABLET PO ONE (19:53)
[2019-04-10] MEDS: HYDROmorphone HCl 2 MG/ML VIAL IVPB PRN ×2 (01:59→05:03)
[2019-04-10] MEDS ORDERED: PIPERACILLIN/TAZOBACTAM 3.375 GM VIAL IVPB ONE ×3 (02:39→17:24)
[2019-04-10] MEDS ORDERED: DEXTROSE 5%-WATER - 50 ML IVPB ONE ×3 (02:39→17:24)
[2019-04-10] MEDS: PIPERACILLIN/TAZOB 3.375 GM 3.375 GM in DEXTROSE 5%-WATER - 50 ML IVPB SCH ×3 (02:46→17:31)
[2019-04-10] MEDS: ONDANSETRON 4 MG/2 ML VIAL IVPUSH PRN (05:03)
[2019-04-10 07:58] LABS: BASO % 0.5 % (0-2.0); EOS % 2.2 % (0-4.5); HEMOGLOBIN 11.7 GM/dL (10.7-15.3); LYMPH % 25.5 % (8-40); MCH 31.1 pg (25.7-33.7); MCHC 33.5 g/dl (32.0-36.0); MEAN CELL VOLUME 92.7 fl (80-96); MEAN PLT VOLUME 8.5 fl (7.5-11.1); MONO % 16.1 % (3.8-10.2); NEUT % 55.7 % (42.8-82.8); PLATELET COUNT 242 K/MM3 (134-434); RBC 3.77 M/mm3 (3.60-5.2); RDW 14.4 % (11.6-15.6); WHITE BLOOD COUNT 5.4 K/mm3 (4.0-10.0)
[2019-04-10] MEDS ORDERED: ROCURONIUM BROMIDE 50 MG/5 ML SYRINGE ONE (08:05)
[2019-04-10] MEDS ORDERED: SUCCINYLCHOLINE CHLORIDE 200 MG/10 ML SYRINGE ONE (08:05)
[2019-04-10] MEDS ORDERED: fentaNYL CITRATE 250 MCG/5 ML VIAL ONE (08:05)
[2019-04-10] MEDS ORDERED: MIDAZOLAM HCL 2 MG/2 ML SINGLE DOSE VIAL ONE (08:05)
[2019-04-10] MEDS ORDERED: PROPOFOL 20 ML ONE ×2 (08:05)
[2019-04-10] MEDS ORDERED: LIDOCAINE HCL/PF 2% SDV 5ML VIAL ONE (08:07)
[2019-04-10] MEDS ORDERED: ALBUTEROL SO4 8 GM HFA INHALER IH ONE (08:07)
--- NOTE | 2019-04-10 08:11 | PN ---
Progress Note (short form) - Note Progress Note: PATIENT TRANSFERRED TO O.R. FOR CHOLCYSTECTOMY NO CONTRAINDICATION FOR SURGERY AT THIS TIME WILL SEE IN PACU TO FINISH EXAM VS STABLE NPO Problem List - Problems (1) Acute cholecystitis Code(s): K81.0 - ACUTE CHOLECYSTITIS (2) Nausea & vomiting Code(s): R11.2 - NAUSEA WITH VOMITING, UNSPECIFIED (3) RUQ abdominal pain Code(s): R10.11 - RIGHT UPPER QUADRANT PAIN
[2019-04-10 08:22] LABS: ALBUMIN 2.7 g/dl (3.4-5.0); BILIRUBIN,TOTAL 0.2 mg/dL (0.2-1); BLOOD UREA NITROGEN 4.2 mg/dL (7-18); CALCIUM 8.6 mg/dL (8.5-10.1); CREATININE 0.5 mg/dL (0.55-1.3); POTASSIUM 3.4 mmol/L (3.5-5.1); TOT PROT 6.2 g/dl (6.4-8.2)
[2019-04-10] MEDS ORDERED: oxyCODONE HCL 5 MG TABLET PO PRN ×3 (09:14→11:57)
[2019-04-10] MEDS ORDERED: NEOSTIGMINE METHYLSULFATE 0.5 MG/ML - 10 ML MDV ONE (09:56)
[2019-04-10] MEDS ORDERED: GLYCOPYRROLATE 0.2 MG/1 ML VIAL ONE (09:58)
[2019-04-10] MEDS ORDERED: PANTOPRAZOLE SODIUM 40 MG VIAL IVPUSH SCH (10:00)
[2019-04-10] MEDS: SUCRALFATE 1 GM TABLET (FP) PO SCH (10:08)
[2019-04-10] MEDS: PANTOPRAZOLE SODIUM 40 MG VIAL IVPUSH SCH (10:09)
[2019-04-10] MEDS: ESCITALOPRAM OXALATE 20 MG TABLET (FP) PO SCH ×2 (10:09→12:20)
[2019-04-10] MEDS: HEPARIN NA (PORCINE) 5,000 UNITS/ML 1ML VIAL SQ SCH ×2 (10:09→21:19)
--- NOTE | 2019-04-10 10:12 | OP ---
Operative Note - Note: Operative Date: 04/10/19 Pre-Operative Diagnosis: acalculus cholecysititis Operation: laparoscopic cholecystectomy, lavage Findings: pale, distended, inflamed, edematous gb Post-Operative Diagnosis: Same as Pre-op Surgeon: Tim Vasquez Cosmetic Dentist: Alex Walter Anesthesiologist/OCCUPATIONAL THERAPY TECHNICIAN: Luis Maria Anesthesia: General Specimens Removed: gb Estimated Blood Loss (mls): 30 Operative Report Dictated: Yes
[2019-04-10] MEDS ORDERED: ACETAMINOPHEN INJECTION 100 ML IVPB ONE (10:18)
[2019-04-10] MEDS ORDERED: ONDANSETRON 4 MG/2 ML VIAL ONE ×2 (10:18→10:50)
[2019-04-10] MEDS ORDERED: ONDANSETRON 4 MG/2 ML VIAL IVPUSH PRN ×2 (10:19→11:57)
[2019-04-10] MEDS ORDERED: PROMETHAZINE HCL 25 MG/1 ML VIAL IVPB PRN (10:19)
[2019-04-10] MEDS ORDERED: ONDANSETRON 4 MG/2 ML VIAL IVPUSH ONE (10:20)
--- NOTE | 2019-04-10 10:27 | SURG ---
Surgery Refund Specialist Note Refund Specialist: Alex Walter PA-C Date of Service: 04/10/19 Diagnosis: calculus cholecysititis Procedure: laparoscopic cholecystectomy, lavage I was present for the entirety of the operative procedure. For further detail, please refer to operative report. Visit type - Case Type Case Type: ED Admission - Emergency Emergency Visit: Yes ED Registration Date: 04/06/19 Care time: The patient presented to the Emergency Department on the above date and was hospitalized for further evaluation of their emergent condition. - New patient This patient is new to me today: No - Critical Care Critical Care patient: No
[2019-04-10] MEDS ORDERED: ACETAMINOPHEN 1000 MG/100 ML VIAL (NON FORMULARY) IVPB ONE (10:30)
[2019-04-10] MEDS ORDERED: ESCITALOPRAM OXALATE 10 MG TABLET (FP) ONE (11:54)
[2019-04-10] MEDS ORDERED: DEXTROSE 5%-0.45% SALINE 1,000 ML IV SCH (11:57)
[2019-04-10] MEDS ORDERED: ALBUTEROL SO4 0.083% IH SOL 2.5 MG/3 ML VIAL.NEB. NEB PRN (11:57)
[2019-04-10] MEDS: oxyCODONE HCL 5 MG TABLET PO PRN ×2 (14:18→21:18)
--- NOTE | 2019-04-10 15:07 | OP ---
DATE OF OPERATION: 04/10/2019 PREOPERATIVE DIAGNOSIS: Acalculous, acute cholecystitis. PREOPERATIVE DIAGNOSIS: Acalculous, acute cholecystitis. PROCEDURE: Laparoscopic cholecystectomy, lavage. SURGEON: Tim Vasquez DO LEAD SQL DEVELOPER: INES Madden ANESTHESIOLOGIST: Luis Maria MD SPECIMEN: Gallbladder. FINDINGS: A thickened, distended, inflamed gallbladder with hydrops. BLOOD LOSS: 30 mL. DRAINS: None. COMPLICATIONS: None. DISPOSITION: Recovery room in stable condition. BRIEF HISTORY: This is a 28-year-old male who presented to [facility] with signs and symptoms of acute cholecystitis. Her imaging was consistent with cholecystitis; however, there were no gallstones noted. After a confirmatory HIDA scan, she presents now for cholecystectomy. DESCRIPTION OF PROCEDURE: The patient was placed in a supine position. After general anesthesia was administered, the abdomen was prepped and draped in sterile fashion. The patient was already on Zosyn antibiotic. Next, a transverse incision was made infraumbilical with scalpel used to go through the skin and subcutaneous tissue. The fascia was then lifted with a Robin clamp. Veress needle was inserted, pneumoperitoneum was created. Next, a 10-mm 0-degree laparoscope was inserted followed by insertion of an 11-mm trocar subxiphoid and two 5-mm trocars in the right upper quadrant. Attention was turned to the gallbladder. It was covered by omentum, which was stuck to it. This was teased off. The gallbladder was pale, edematous, inflamed. Veress needle decompression was done in order to enable grasping the gallbladder. There was hydrops noted. The fundus was lifted cephalad. The infundibulum retracted laterally. The peritoneal peel was dissected down exposing a small cystic duct and a cystic artery that was crossing it. Both were clipped and divided. The gallbladder was then liberated from the liver bed using electrocautery, and hemostasis was maintained using electrocautery. The gallbladder was then placed in a specimen bed, removed through the infraumbilical trocar site after a significant fascial dilatation in order to require delivering such a large gallbladder. At this point, a vigorous lavage was done, and all return was clear. There was no bleeding noted. Trocars were removed under direct visualization as pneumoperitoneum was released, and no bleeding was noted. The fascia of the infraumbilical trocar site was closed with multiple interrupted 0 Vicryl sutures. The 4 skin incisions were closed with Biosyn. Dermabond dressing was placed. At this point, the operation terminated. PLAN: Patient will continue on antibiotics overnight. She would attempt regular diet, and she likely will be discharged home the next day not requiring antibiotics or narcotics. DO ANIKA ESCOBEDO/[id number] MTDD
--- NOTE | 2019-04-10 17:00 | PN.GI ---
GI Progress Note Subjective: S/P lap Cori States feeling well Abdominal pain resolved, no pain at umbilical trochar site - Objective Vital Signs: Vital Signs Temperature 98 F 04/10/19 12:36 Pulse Rate 55 L 04/10/19 12:36 Respiratory Rate 18 04/10/19 12:36 Blood Pressure 125/66 04/10/19 12:36 O2 Sat by Pulse Oximetry (%) 99 04/10/19 12:36 Constitutional: Moderate Distress Eyes: No: Sclera Icterus Cardiovascular: Yes: Regular Rate and Rhythm Respiratory: Yes: CTA Bilaterally Gastrointestinal Inspection: Yes: Scars (glued trochar scars). No: Distention ...Auscultate: Yes: Normoactive Bowel Sounds ...Palpate: Yes: Soft. No: Hepatomegaly ...Percussion: No: Tympanitic Edema: No (No LE edema) Neurological: Yes: Alert, Oriented Labs: CBC, BMP 04/10/19 07:10 04/10/19 07:10 INR, PTT INR 1.20 (0.83-1.09) H 04/06/19 22:30 Problem List - Problems (1) Acute cholecystitis Assessment/Plan: S/P Lap Cori Clinically improved Post Op care per surgery Code(s): K81.0 - ACUTE CHOLECYSTITIS
[2019-04-10] MEDS ORDERED: ALPRAZolam 0.25 MG TABLET PO ONE (21:00)
[2019-04-11] MEDS ORDERED: MORPHINE SULFATE 2 MG/ML VIAL IVPUSH ONE (01:00)
--- NOTE | 2019-04-11 01:08 | HOSP ---
Subjective - Review of Symptoms Events since last encounter: Hospitalist Encounter Microblogged by the RN that the patient is reporting her pain at the surgical sites are not being relieved with Oxycodone. Was asked to assess. Arrived to bedside patient is awake, alert and oriented reports increased pain to surgical sites when coughing and moving. Advised patient to splint with a pillow when coughing. PE performed see EMR. Assessment: This is a 28 y/o woman admitted with Acute Cholecystitis. s/p Lap Cori POD #0 Plan: Morphine Sulfate IV x1 dose now Continue with current regimen Gastrointestinal: Yes: Abdominal Pain (surgical trochar sites) Physical Examination Vital Signs: Vital Signs Temperature 97.9 F 04/10/19 21:47 Pulse Rate 54 L 04/10/19 21:47 Respiratory Rate 18 04/10/19 21:00 Blood Pressure 132/55 L 04/10/19 21:47 O2 Sat by Pulse Oximetry (%) 98 04/10/19 21:00 Constitutional: Yes: Anxious, Moderate Distress, Obese Eyes: Yes: WNL, Conjunctiva Clear, EOM Intact HENT: Yes: WNL, Atraumatic, Normocephalic Neck: Yes: WNL, Supple, Trachea Midline Cardiovascular: Yes: WNL, Regular Rate and Rhythm, S1, S2 Respiratory: Yes: Rhonchi, Wheezes Gastrointestinal: Yes: Soft, Abdomen, Obese, Hypoactive Bowel Sounds, Tenderness Musculoskeletal: Yes: WNL Extremities: Yes: WNL Edema: No Peripheral Pulses WNL: Yes Integumentary: Yes: WNL Wound/Incision: Yes: Other (surgical sites- intact) Neurological: Yes: WNL, Alert, Oriented, Cran Nerves II-XII Intact ...Motor Strength: WNL Psychiatric: Yes: WNL, Alert, Oriented Labs: CBC, BMP 04/10/19 07:10 04/10/19 07:10
[2019-04-11] MEDS ORDERED: PIPERACILLIN/TAZOBACTAM 3.375 GM VIAL IVPB ONE ×2 (01:09→10:00)
[2019-04-11] MEDS ORDERED: DEXTROSE 5%-WATER - 50 ML IVPB ONE ×2 (01:09→10:00)
[2019-04-11] MEDS: PIPERACILLIN/TAZOB 3.375 GM 3.375 GM in DEXTROSE 5%-WATER - 50 ML IVPB SCH ×2 (01:17→10:14)
[2019-04-11 02:47] VITALS: PULSE 49
[2019-04-11 06:27] VITALS: BP 141/57; TEMP 98.1
[2019-04-11] MEDS: oxyCODONE HCL 5 MG TABLET PO PRN (06:27)
--- NOTE | 2019-04-11 08:21 | PN ---
Progress Note (short form) - Note Progress Note: POD#1 PT without any complaints of nausea. She was having umbilical incisional pain overnight which is better this am. Passing flatus. Vital Signs Period Temp Pulse Resp BP Sys/Hung Pulse Ox Last 24 Hr 97.9 F-98.8 F 7- 14-18 123-145/55-89 98-99 GEN: A&0x3, NAD CV: RRR Lungs: CTA b/l ABD: soft, non-distended, inc tenderness. inc c/d/i with dermabond. A/P: 28 yo female s/p Lap nicki, POD#1 Low fat diet as tolerated Pain managment with oral pain meds OOB and ambulate Discharge planning as per medicine, D/w Dr. Vasquez, patient is stable for discharge.
[2019-04-11] MEDS ORDERED: ESCITALOPRAM OXALATE 10 MG TABLET (FP) ONE (09:59)
[2019-04-11] MEDS ORDERED: PANTOPRAZOLE SODIUM 40 MG VIAL IVPUSH SCH (10:00)
[2019-04-11] MEDS: HEPARIN NA (PORCINE) 5,000 UNITS/ML 1ML VIAL SQ SCH (10:10)
[2019-04-11] MEDS: ESCITALOPRAM OXALATE 20 MG TABLET (FP) PO SCH (10:10)
--- NOTE | 2019-04-11 10:35 | DS ---
Physical Examination Vital Signs: Vital Signs Temperature 98.1 F 04/11/19 06:00 Pulse Rate 49 L 04/11/19 06:00 Respiratory Rate 18 04/11/19 06:00 Blood Pressure 141/57 L 04/11/19 06:00 O2 Sat by Pulse Oximetry (%) 98 04/10/19 21:00 Findings/Remarks: This is a 28 y/o young woman with a PMHx of Renal Calculi, Asthma. Who presents to the ED with complaints of epigastric and right upper quadrant abdominal pain that radiates to her back 7 days ago worse since Tuesday. Patient reports that the pain has been constant sharp to nagging. She states being seen at [facility] yesterday where she had labs, a CT scan, chest x-ray, and right upper quadrant ultrasound and was told they were all negative. She was discharged with a diagnosis of gastroenteritis. The patient states she has a history of kidney stones but this feels different and worse. She drinks alcohol socially less than once a month. She is a smoker. She admits bilious vomiting several times daily and states it is nonbloody. She denies any diarrhea. She states the pain initially started after eating something. Patient denies fever, cough, dizziness, RENAE, SOB, CP, palpitations, dysuria. Constitutional: Yes: Well Nourished, No Distress, Calm Cardiovascular: Yes: Regular Rate and Rhythm Respiratory: Yes: Regular Gastrointestinal: Yes: Normal Bowel Sounds, Soft, Abdomen, Obese Renal/: Yes: WNL Musculoskeletal: Yes: WNL Extremities: Yes: WNL Edema: No Peripheral Pulses WNL: Yes Wound/Incision: Yes: Dressing Dry and Intact Neurological: Yes: Alert, Oriented Psychiatric: Yes: Alert, Oriented Labs: CBC, BMP 04/10/19 07:10 04/10/19 07:10 Discharge Summary Problems reviewed: Yes Reason For Visit: ACUTE CHOLECYSTITIS Current Active Problems Acute acalculous cholecystitis (Acute) Acute cholecystitis (Acute) Asthma (Acute) Nausea & vomiting (Acute) RUQ abdominal pain (Acute) Laboratory Last Values WBC 5.4 K/mm3 (4.0-10.0) 04/10/19 07:10 RBC 3.77 M/mm3 (3.60-5.2) 04/10/19 07:10 Hgb 11.7 GM/dL (10.7-15.3) 04/10/19 07:10 Hct 35.0 % (32.4-45.2) 04/10/19 07:10 MCV 92.7 fl (80-96) 04/10/19 07:10 MCH 31.1 pg (25.7-33.7) 04/10/19 07:10 MCHC 33.5 g/dl (32.0-36.0) 04/10/19 07:10 RDW 14.4 % (11.6-15.6) 04/10/19 07:10 Plt Count 242 K/MM3 (134-434) 04/10/19 07:10 MPV 8.5 fl (7.5-11.1) 04/10/19 07:10 Absolute Neuts (auto) 3.0 K/mm3 (1.5-8.0) 04/10/19 07:10 Neutrophils % 55.7 % (42.8-82.8) D 04/10/19 07:10 Lymphocytes % 25.5 % (8-40) D 04/10/19 07:10 Monocytes % 16.1 % (3.8-10.2) H 04/10/19 07:10 Eosinophils % 2.2 % (0-4.5) D 04/10/19 07:10 Basophils % 0.5 % (0-2.0) 04/10/19 07:10 Nucleated RBC % 0 % (0-0) 04/10/19 07:10 PT with INR 14.20 SEC (9.7-13.0) H 04/06/19 22:30 INR 1.20 (0.83-1.09) H 04/06/19 22:30 PTT (Actin FS) 33.2 SECONDS (25.2-36.5) 04/06/19 22:30 Sodium 140 mmol/L (136-145) 04/10/19 07:10 Potassium 3.4 mmol/L (3.5-5.1) L 04/10/19 07:10 Chloride 103 mmol/L (98-107) 04/10/19 07:10 Carbon Dioxide 32 mmol/L (21-32) 04/10/19 07:10 Anion Gap 5 MMOL/L (8-16) L 04/10/19 07:10 BUN 4.2 mg/dL (7-18) L 04/10/19 07:10 Creatinine 0.5 mg/dL (0.55-1.3) L 04/10/19 07:10 Est GFR (CKD-EPI)AfAm 154.81 04/10/19 07:10 Est GFR (CKD-EPI)NonAf 133.57 04/10/19 07:10 POC Glucometer 182 UNITS (80-120) 04/07/19 02:44 Random Glucose 101 mg/dL (74-106) 04/10/19 07:10 Calcium 8.6 mg/dL (8.5-10.1) 04/10/19 07:10 Total Bilirubin 0.2 mg/dL (0.2-1) 04/10/19 07:10 AST 13 U/L (15-37) L 04/10/19 07:10 ALT 16 U/L (13-61) 04/10/19 07:10 Alkaline Phosphatase 72 U/L (45-117) 04/10/19 07:10 Total Protein 6.2 g/dl (6.4-8.2) L 04/10/19 07:10 Albumin 2.7 g/dl (3.4-5.0) L 04/10/19 07:10 Lipase 70 U/L (73-393) L 04/08/19 08:45 TSH 2.01 uIU/ml (0.358-3.74) 04/10/19 07:10 Serum , Qual Negative 04/10/19 07:10 Urine Color Yellow 04/06/19 18:00 Urine Appearance Clear 04/06/19 18:00 Urine pH >= 9.0 (5.0-8.0) H 04/06/19 18:00 Ur Specific [place] 1.025 (1.010-1.035) 04/06/19 18:00 Urine Protein Trace (NEGATIVE) 04/06/19 18:00 Urine Glucose (UA) Negative (NEGATIVE) 04/06/19 18:00 Urine Ketones 3+ (NEGATIVE) H 04/06/19 18:00 Urine Blood Negative (NEGATIVE) 04/06/19 18:00 Urine Nitrite Negative (NEGATIVE) 04/06/19 18:00 Urine Bilirubin Negative (NEGATIVE) 04/06/19 18:00 Urine Urobilinogen 1.0 mg/dL (0.2-1.0) 04/06/19 18:00 Ur Leukocyte Esterase Negative (NEGATIVE) 04/06/19 18:00 Urine HCG, Qual Negative 04/06/19 18:00 Blood Type A POSITIVE 04/06/19 22:30 Antibody Screen Negative 04/06/19 22:30 Microbiology 04/07/19 02:20 Blood - Peripheral Venous Blood Culture - Preliminary NO GROWTH OBTAINED AFTER 96 HOURS, INCUBATION TO CONTINUE FOR 1 DAYS. 04/07/19 02:30 Blood - Peripheral Venous Blood Culture - Preliminary NO GROWTH OBTAINED AFTER 96 HOURS, INCUBATION TO CONTINUE FOR 1 DAYS. 04/06/19 18:00 Urine - Urine Clean Catch Urine Culture - Final Normal Urogenital Patricia Vital Signs Temp 98.1 F 04/11/19 06:00 Pulse 49 L 04/11/19 06:00 Resp 18 04/11/19 06:00 BP 141/57 L 04/11/19 06:00 Pulse Ox 98 04/10/19 21:00 Intake & Output 04/10/19 04/10/19 04/11/19 11:59 23:59 11:59 Intake Total 2350 240 1858 Output Total 30 Balance 2320 240 1858 Intake: IV 2300 1200 D5-1/2Ns - 1,000 ml @ 100 1100 1200 mls/hr IV [facility] Rx#: [id number] IVPB 50 100 Oral 240 240 Oral Supplement 318 Output: Estimated Blood Loss 30 Other: Voiding Method Toilet Toilet Bowel Movement No - Instructions Diet, Activity, Other Instructions: Dear DELVIN KEEN, Post Operative Instructions Physical activity Resume your normal everyday activity as tolerated no heavy lifting or exercise until seen by your surgeon. You may walk unlimited amounts of and climb stairs. You may resume driving the car when you feel safe and comfortable behind the wheel. Wound care You may shower starting 04/12. No baths or submerging your incision in water. Diet There are no dietary restrictions. Eat healthy, high-fiber foods. Drink 6 to 8 glasses of liquid each day. This will assist in keeping your bowels are regular. Pain management You may take Tylenol or acetaminophen or Ibuprofen (for example, Motrin, Advil etc.) Any pain prescription medication ordered should be taken as prescribed for moderate to severe pain. Call Dr. Vasquez for any of the following: Severe pain not relieved by medication Fever of 101 or higher Excessive bleeding or drainage on dressing Call the office for a post operative appointment in 7 - 10 days. Referrals: Deandra Weinberg [Primary Care Provider] - Tim Vasquez MD [Staff Physician] - Disposition: HOME - Home Medications Comprehensive Discharge Medication List: Ambulatory Orders Escitalopram Oxalate [Lexapro -] 20 mg PO DAILY 04/06/19 Hydroxyzine HCl 25 mg PO TID PRN 04/06/19 Sucralfate [Carafate -] 1 gm PO QID #40 tablet 04/11/19 oxyCODONE HCL [Roxicodone -] 1 - 2 tab PO Q4H PRN #60 tablet MDD 12 04/11/19 Prescription Drug Monitoring Program (I-STOP) results: I-STOP reviewed and no issues identified
--- NOTE | 2019-04-11 15:18 | PATH ---
Surgical Pathology Report Patient Name: DELVIN KEEN [facility]. Rec. #: [id number] /Age/Gender: 1990 (Age: 28) / F Account: [id number] Location: [address] [place] [address]/[facility] Taken: 04/10/2019 Received: 04/10/2019 Reported: 04/11/2019 Physicians: Natanael Manzano M.D. Specimen(s) Received GALLBLADDER Clinical History Acute cholecystitis Final Diagnosis GALLBLADDER, LAPAROSCOPIC CHOLECYSTECTOMY: ACUTE AND CHRONIC CHOLECYSTITIS. ONE BENIGN PERIDUCTAL LYMPH NODE (0/1). Electronically Signed Janneth Snider M.D. Gross Description Received in formalin, labeled "gallbladder," is a 11.5 x 4.5 x 2.8 cm. gallbladder with a 0.2 cm. in length portion of cystic duct attached. There is a 1.0 cm in greatest dimension periductal lymph node present. The outer surface is kim-pink and varies from smooth to shaggy. The lumen contains red blood. There are no choleliths identified within the lumen or within the container. The mucosa is hyperemic. The wall of the gallbladder ranges from 0.3-0.7 cm. in thickness. Field Party Manager sections are submitted in 2 cassettes as follows: 1-cystic duct margin and one bisected lymph node; 2-inbound customer service representative mucosa. /04/10/2019 [facility]04/10/2019
== END 2019-04-11 12:29 | disposition home or self-care (01) | DRG 263 ==
LOC: JER 12:58 → JERBED 22:00 → J6S 04-07 01:48
PROVIDERS: ADMIT Internal Medicine; ATTEND Family Medicine
PROC: 0FT44ZZ Resection of Gallbladder, Percutaneous Endoscopic Approach (ICD-10-PCS; principal; 2019-04-10 08:30)
DX: K81.0 Acute cholecystitis (principal); K82.1 Hydrops of gallbladder; J45.909 Unspecified asthma, uncomplicated; E66.9 Obesity, unspecified; F32.9 Major depressive disorder, single episode, unspecified; L68.0 Hirsutism; Z68.34 Body mass index [BMI] 34.0-34.9, adult
CPT/HCPCS: 36415; 71045-TC-FY; 71046-TC-FY; 74019-TC-FY; 74177-TC; 76705-TC; 78226-TC; 80048; 80053; 81003; 82962; 83690; 84439; 84443; 84703; 85025; 85027; 85610; 85730; 86850; 86900; 86901; 87040; 87086; 88304-TC; 94010; 94640; 94760; 99285-25; A9537; J0131; J1644; J7030; Q9967

== ENCOUNTER 2020-09-09 18:13 | Emergency (ER) | payer OTHER ==
[2020-09-09 18:40] VITALS: BP 112/68; PULSE 69; TEMP 99.7; BMI 33.6
[2020-09-09] MEDS ORDERED: SODIUM CHLORIDE 1,000 ML IV STA (20:10)
[2020-09-09] MEDS ORDERED: ONDANSETRON 4 MG/2 ML VIAL IVPUSH ONE (20:10)
[2020-09-09] MEDS ORDERED: ONDANSETRON 4 MG/2 ML VIAL ONE (20:28)
[2020-09-09 20:32] LABS: EPI CELLS >36 /uL (0-25.1); HCG,QUALITATIVE URINE Negative; HYALINE CASTS 1 /uL (0-3.1); PH,URINE 6.5 (5.0-8.0); URINE APPEARANCE CLOUDY; URINE BACTERIA 2098 /uL (0-1359); URINE BILIRUBIN NEGATIVE (NEGATIVE); URINE COLOR YELLOW; URINE GLUCOSE (UA) NEGATIVE (NEGATIVE); URINE KETONE NEGATIVE (NEGATIVE); URINE LEUK ESTERASE 2+ (NEGATIVE); URINE NITRITE NEGATIVE (NEGATIVE); URINE PROTEIN NEGATIVE (NEGATIVE); URINE RBC 4 /uL (0-23.9); URINE WBC 98 /uL (0-25.8)
[2020-09-09 21:17] LABS: BASO % 0.8 % (0-2.0); EOS % 1.4 % (0-4.5); HEMATOCRIT 39.6 % (32.4-45.2); HEMOGLOBIN 13.6 GM/dL (10.7-15.3); LYMPH % 26.9 % (8-40); MCHC 34.5 g/dl (32.0-36.0); MEAN CELL VOLUME 92.8 fl (80-96); MEAN PLT VOLUME 9.2 fl (7.5-11.1); MONO % 7.2 % (3.8-10.2); NEUT % 63.7 % (42.8-82.8); PLATELET COUNT 268 K/MM3 (134-434); RBC 4.27 M/mm3 (3.60-5.2); RDW 14.8 % (11.6-15.6); WHITE BLOOD COUNT 10.4 K/mm3 (4.0-10.0)
[2020-09-09 21:27] LABS: ALBUMIN 3.5 g/dl (3.4-5.0); BLOOD UREA NITROGEN 10.4 mg/dL (7-18)
[2020-09-09 21:30] LABS: CREATININE 0.6 mg/dL (0.55-1.3)
[2020-09-09 21:32] LABS: BILIRUBIN,TOTAL 0.4 mg/dL (0.2-1); TOT PROT 7.2 g/dl (6.4-8.2)
[2020-09-09] MEDS ORDERED: ACETAMINOPHEN 1000 MG/100 ML VIAL (NON FORMULARY) IVPB ONE (21:53)
[2020-09-09] MEDS ORDERED: ACETAMINOPHEN INJECTION 100 ML IVPB ONE (22:01)
[2020-09-09] MEDS ORDERED: CEFTRIAXONE 1,000 MG in DEXTROSE 5%-WATER - 50 ML IVPB ONE (22:42)
[2020-09-09] MEDS ORDERED: CEFTRIAXONE 1 GM/50 ML BAG ONE (22:54)
== END 2020-09-09 23:42 | disposition home or self-care (01) ==
LOC: JER 18:13
PROC: 3E03329 Introduction of Other Anti-infective into Peripheral Vein, Percutaneous Approach (ICD-10-PCS; principal; 2020-09-09)
PROC: 3E033NZ Introduction of Analgesics, Hypnotics, Sedatives into Peripheral Vein, Percutaneous Approach (ICD-10-PCS; 2020-09-09)
PROC: 3E0337Z Introduction of Electrolytic and Water Balance Substance into Peripheral Vein, Percutaneous Approach (ICD-10-PCS; 2020-09-09)
DX: R10.31 Right lower quadrant pain (principal); N30.00 Acute cystitis without hematuria
CPT/HCPCS: 36415; 74177-TC; 80053; 81003; 84703; 85025; 99285-25; J0131